=== PATIENT | female | born 1985 | race African-American/Black ===

== ENCOUNTER 2022-01-04 16:59 | Emergency (ER) | payer OTHER, SELFPAY ==
[2022-01-04 17:15] VITALS: BP 115/73; PULSE 65; RESP 18; TEMP 36.3; O2SAT 100; BMI 27.8
--- NOTE | 2022-01-04 20:35 | CRLHL7_ITS ---
For Patients: As a result of the Cures Act, medical imaging exams and procedure reports are released immediately into your electronic medical record. You may view this report before your referring provider. If you have questions, please contact your health care provider. INDICATION: Trauma. TECHNIQUE: Three views of the right foot. COMPARISON: None. IMPRESSION: No acute fracture is identified. No subluxation or dislocation. 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 Dictated by Marco Norris MD @ 01/04/2022 9:02:55 PM (Electronically Signed)
--- NOTE | 2022-01-04 20:35 | ED.GENADULT ---
HPI - General Adult General Time Seen by Provider: 20:36 Date Seen: 01/04/22 Chief complaint: Extremity Pain/Injury, Lower Stated complaint: Injured right leg at work Time Seen by Provider: 01/04/22 20:13 Source: patient Mode of arrival: ambulatory Limitations: no limitations History of Present Illness HPI narrative: Po is a 36 year old female with no past medical history who presents to the ED via private care with a right lower extremity injury. 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 This seed is made out a metal, ended up falling off landing right on her right foot, no other area. This occurred about 1:10 p.m., she iced it throughout the day at work, she took some Tylenol around 7 pm tonight. She has been limping on that right extremity, pain started radiating up her chung to her knee, no real associated swelling, patient has been ambulating but limping on that foot. No history of any injuries to that foot in the past, she denies any weakness, numbness or paresthesia. No other concerns at this time. Related Data Home Medications Medication Instructions Recorded Confirmed No Known Home Medications 01/04/22 01/04/22 Allergies Allergy/AdvReac Type Severity Reaction Status Date / Time oxycodone Allergy Verified 01/04/22 17:17 Review of Systems Status of ROS: Reports: 10 or more systems reviewed and unremarkable except as noted in History and below PFSH PFS Social History Smoking Status: Never smoker Do you use any of these nicotine containing products: None Second hand tobacco smoke exposure: No How often do you have a drink containing alcohol: never AUDIT-C Alcohol total score: 0 Non-prescribed substance use: denies use Exam Const: Vital Signs, click to edit/add: Vital Signs - 24 hr 01/04/22 17:15 Temperature 97.4 F L Pulse Rate [Right Pulse Oximeter] 65 Respiratory Rate 18 Blood Pressure [Ri ght Upper Arm] 115/73 Pulse Oximetry 100 Oxygen Delivery Me thod Room Air Common normals: no apparent distress and oriented x3 General appearance: cooperative, comfortable, well kempt and well developed Orientation/consciousness: Yes awake, Yes oriented to person, Yes oriented to place and Yes oriented to time HENMT: Common normals: normocephalic Head and scalp: normocephalic Mouth: oral and palatal mucosa normal Throat: posterior oropharynx normal Eye: Common normals: PERRL, EOMs intact bilaterally and conjunctivae normal Conjunctiva: conjunctiva(e) normal Pupil: PERRL Neck & C-Spine: Common normals: full ROM and supple Chest: Common normals: inspection of chest normal Resp: Common normals: clear to auscultation bilaterally Auscultation: clear to auscultation bilaterally Cardio: Common normals: regular rhythm, S1 normal heart sound and S2 normal heart sound Rhythm: regular rhythm Heart sounds: S1 normal and S2 normal GI: Common normals: non-tender Back & Pelvis: Common normals: no thoracic nor lumbar tenderness Extremity: Other: Right foot: Tender to palpation the proximal 2nd, 3rd and 4th metatarsal, no associated swelling, nontender to palpation the phalanges, patient can actively dorsal and plantar flex, no tenderness to the medial and lateral malleolus, nontender to palpation the proximal tibia and fibula, FROM the right knee. Neuro: Common normals: oriented x3 Sensorium/orientation: awake, oriented to person, oriented to place and oriented to time Psych: Appearance: well kempt Course Course Hospital Course: 8:20 PM: AIDET performed. Vitals are normal. Workup will include, XR right foot three views to rule out fracture, likely place any surgical shoe, for pain Motrin 800 mg orally. Patient was in agreement. Reevaluation(s) Reevaluation #1: Patient was updated on her imaging results, no acute fracture identified, no subluxation or dislocation. Patient is feeling better after above care given, plan to place any surgical shoe, she should follow up with her primary care provider over the next 7-10 days, continue with RICE, Motrin or Tylenol every 4-6 hours as needed for pain. Return if worsening symptoms. Time: 21:06 Vital Signs Vital signs: Initial Vital Signs Temperature 97.4 F L 01/04/22 17:15 Temperature Source Temporal Artery Scan 01/04/22 17:15 Pulse Rate 65 01/04/22 17:15 Respiratory Rate 18 01/04/22 17:15 Blood Pressure 115/73 01/04/22 17:15 Blood Pressure Mean 87 01/04/22 17:15 Blood Pressure Position Sitting 01/04/22 17:15 Pulse Oximetry 100 01/04/22 17:15 Oxygen Delivery Method 01/04/22 17:15 Vital Signs Temperature 97.4 F L 01/04/22 17:15 Pulse Rate 65 01/04/22 17:15 Respiratory Rate 18 01/04/22 17:15 Blood Pressure 115/73 01/04/22 17:15 Pulse Oximetry 100 01/04/22 17:15 Oxygen Delivery Method 01/04/22 17:15 Temperature 97.4 F L 01/04/22 17:15 Pulse Rate 72 01/04/22 21:20 Respiratory Rate 16 01/04/22 21:20 Blood Pressure 115/73 01/04/22 17:15 Pulse Oximetry 99 01/04/22 21:20 Oxygen Delivery Method 01/04/22 21:20 Discharge Plan Discharge Clinical Impression: Injury of foot, right Patient Disposition: Home, Self-Care Condition: Improved Instructions: R.I.C.E. Treatment (ED) Additional Instructions: To follow up with your primary care provider in the next 7-10 days for recheck. Motrin 400-600 mg every 4-6 hours or Tylenol 1000 mg every 4-6 hours for pain. Return if worsening symtoms. Activity Level: Activity as Tolerated Prescriptions: No Action No Known Home Medications Follow Up/Referrals: El Conklin MD [Staff Physician] - Stand Alone Forms: [employer] Info Instructions
[2022-01-04] MEDS: IBUPROFEN 400 MG TABLET 800 MG PO (20:45)
--- OUTSIDE RECORDS SUMMARY | 2022-01-04 21:14 | XMS_ITS | Clinical Summary ---
:1985 Author Organization [facility] [place] [address] Care Team Providers Name Role Phone Pcp, No Primary Care Provider Unavailable Allergies Active Allergy Reactions Severity Noted Date Comments Oxycodone Hives, Shortness Of Breath 07/07/2021 Medications Medication Sig Dispensed Refills Start Date End Date Status omeprazole (PRILOSEC) Take 1 Capsule (40 0 Active 40 mg Delayed-Release mg) by mouth once capsule daily before a meal. Active Problems Not on file Immunizations Name Administration Dates Next Due COVID-19 vaccine (Cyanto 30mcg/0.3mL) 12YO+ 022, 07/07/2021 DON-SUCROSE PFKEYSHA Social History Tobacco Use Types Packs/Day Years Used Date Never Smoker Smokeless Tobacco: Never Used Alcohol Use Standard Drinks/Week Comments Yes 0 (1 standard drink = 0.6 oz pure alcoho l) rare use Alcohol Habits Answer Date Recorded How often do you have a drink containing alcohol? Not asked How many drinks containing alcohol do you have on a typical Not asked day when you are drinking? How often do you have six or more drinks on one occasion? No t asked Comment: rare use 07/07/2021 Sex Assigned at Date Recorded Not on file Obstetrics History Last Filed Vital Signs Vital Sign Reading Time Taken Comments Blood Pressure 95/57 07/07/2021 9:43 AM CDT Pulse 72 07/07/2021 9:43 AM CDT Temperature 37 ??C (98.6 ??F) 06/13/2010 10:50 PM CDT Respiratory Rate 18 06/14/2010 1:27 AM CDT Oxygen Saturation 100% 07/07/2021 9:43 AM CDT Inhaled Oxygen Concentration - - Weight 86 kg (189 lb 9.6 oz) 07/07/2021 9:43 AM CDT Height 177.8 cm (5' 10) 07/07/2021 9:43 AM CDT Body Mass Index 27.2 07/07/2021 9:43 AM CDT Plan of Treatment Health Maintenance Due Date Last Done Comments Tdap 12/02/1998 Depression screening for age 12+ 1999 Hepatitis C screening for age 18-79 12/02/2005 Tetanus booster 2007 Pap test for age 21-65 12/02/2008 COVID-19 vaccine series (3 - Booster for 10/01/2021 022, 07/07/2021 Pfizer series) Influenza for age 9-49 12/02/2021 BMI (ht and wt on same day) for age 18+ 07/07/2022 07/08/19 22 Results Not on filefrom Last 3 Months Care Teams Automotive Lot Attendant Relationship Specialty Start Date End Date Pcp, No PCP - General 08/06/21 .
--- NOTE | 2022-01-04 21:19 | ED.NURSE ---
pt given work note.
[2022-01-04 21:20] VITALS: PULSE 72; RESP 16; O2SAT 99
== END 2022-01-04 21:23 | disposition home or self-care (01) ==
PROVIDERS: Emergency Provider Student in an Organized Health Care Education/Training Program
DX: S99.921A Unspecified injury of right foot, initial encounter (principal); W20.8XXA Other cause of strike by thrown, projected or falling object, initial encounter; Y93.89 Activity, other specified; Y92.89 Other specified places as the place of occurrence of the external cause; Y99.0 Civilian activity done for income or pay
CPT/HCPCS: 73630; 99283; 99284; A9270

== ENCOUNTER 2023-05-31 20:10 | Emergency (ER) | payer OTHER, SELFPAY ==
[2023-05-31 20:17] VITALS: BP 112/96; PULSE 111; RESP 20; TEMP 36.6; O2SAT 97; BMI 27.3
[2023-05-31 21:06] LABS: PCR FLU A Negative PCR FLU A (Negative); PCR FLU B Negative PCR FLU B (Negative); PCR RSV Negative PCR RSV (Negative); SARS PCR* Negative SARS-CoV-2 (Negative)
[2023-05-31 21:10] VITALS: O2SAT 98
[2023-05-31] MEDS: 0.9 % SODIUM CHLORIDE 1000 ml 1,000 ML IV ×2 (21:10→22:51)
[2023-05-31] MEDS: ONDANSETRON 2 MG/ML inj 4 MG IVP (21:12)
[2023-05-31 21:18] VITALS: TEMP 36.6
[2023-05-31] MEDS: KETOROLAC 30 MG/ML inj 15 MG IVP (21:18)
[2023-05-31 21:19] LABS: Basophils Absolute Auto 0.04 K/uL (0.00-0.30); Basophils Percent Auto 0.8 % (0.0-3.0); Eosinophils Absolute Auto 0.03 K/uL (0.00-0.50); Eosinophils Percent Auto 0.6 % (0.0-7.0); Hematocrit 40.8 % (33.0-51.0); Hemoglobin* 13.8 gm/dL (12.0-16.0); Immature Granulocytes Abs Auto 0.01 K/uL (0.00-0.30); Immature Granulocytes Pct Auto 0.2 %; Lymphocytes Absolute Auto 1.61 K/uL (0.90-2.90); Lymphocytes Percent Auto 33.8 % (20-44); Mean Corpuscular HGB Conc 34 gm/dL (32-36); Mean Corpuscular Hemoglobin 26 pg (26-34); Mean Corpuscular Volume 78 fL (80-100); Monocytes Percent Auto 8.4 % (0.0-11.0); Neutrophils Absolute Auto 2.67 K/uL (1.7-7.0); Neutrophils Percent Auto 56.2 % (42.0-72.0); Platelet Count* 116 K/uL (140-440); Red Blood Count 5.23 m/uL (4.00-5.20); White Blood Count* 4.76 K/uL (4.50-11.00)
[2023-05-31 21:20] LABS: Slide Review Reflex No
--- NOTE | 2023-05-31 21:28 | ED_ITS ---
HPI - Nausea/Vomiting/Diarrhea General Chief complaint: Nausea/Vomiting Stated complaint: vomiting, chest pain, cough Time Seen by Provider: 05/31/23 20:21 History of Present Illness HPI Narrative: This 37-year-old female comes in reporting persistent vomiting over the past 7- 10 days. She does not have any diarrhea. She states that she did have fever previously. She does feel lightheaded when upright. She also has had a cough. Her pain is located more in the upper epigastric region. Related Data Home Medications Medication Instructions Recorded Confirmed No Known Home Medications 01/04/22 01/04/22 Allergies Allergy/AdvReac Type Severity Reaction Status Date / Time oxycodone Allergy Verified 01/04/22 17:17 Review of Systems Status of ROS: Reports: 10 or more systems reviewed and unremarkable except as noted in History and below Narrative: Constitutional: No fevers, no weight gain or loss. Eyes: No discharge. No vision changes. HENT: No congestion, no sore throat, no ear pain. Cardiovascular: No palpitations. Respiratory: No shortness of breath, no wheezes, no cough. Gastrointestinal: No diarrhea. Upper epigastric and right upper quadrant abdominal pain. Recurrent vomiting. Genitourinary: No dysuria, no hematuria. Musculoskeletal: Normal range of motion. Skin: No rashes, no pruritis. Neurological: No dizziness, weakness, sensory change, speech change. Endo/Heme/Allergies: No bruising or bleeding. No polydipsia. Pysch: no suicidality, no anxiety, no insomnia. All other systems reviewed and are negative. [facility] Social History Smoking Status: Never smoker Do you use any of these nicotine containing products: None Second hand tobacco smoke exposure: No How often do you have a drink containing alcohol: monthly or less How many standard drinks containing alcohol do you have on a typical day: 1 or 2 How often do you have six or more drinks on one occasion: Never AUDIT-C Alcohol total score: 1 Non-prescribed substance use: denies use Exam Narrative: Exam Narrative: Constitutional: Well-developed, well-nourished, no acute distress. HEENT: Normocephalic, atraumatic. Neck: Normal range of motion. Nontender. Supple. Heart: Regular. No murmurs. Borderline tachycardia. Intact distal pulses. Lungs: Clear to auscultation. No wheezes, rhonchi, or rales. Abdomen: Normal bowel sounds. Tenderness in the upper epigastric region and the right upper quadrant. No rebound tenderness. Genitalia: Deferred. Back: No midline tenderness. Normal range of motion. Extremities: Normal range of motion. No injury. Skin: Intact. No rash. Warm. No erythema or pallor. Neurologic: No altered sensation. No weakness. Alert and oriented. Psychiatric: No suicidality. No anxiety or depression. No insomnia. Nursing notes and vitals signs are reviewed. Const: Vital Signs, click to edit/add: Vital Signs - 24 hr 05/31/23 20:17 05/31/23 21:10 05/31/23 21:18 Temperature 97.9 F 97.9 F Pulse Rate [Pulse Oximeter] 111 H Respiratory Rate 20 Blood Pressure [Ri ght Upper Arm] 112/96 H Pulse Oximetry 97 98 Oxygen Delivery Me thod Room Air 05/31/23 22:10 05/31/23 22:30 Temperature 97.9 F 97.9 F Pulse Rate [Pulse Oximeter] 100 Respiratory Rate 20 Blood Pressure [Ri ght Upper Arm] 110/78 Pulse Oximetry 98 Oxygen Delivery Me thod Room Air Course Vital Signs Vital signs: Initial Vital Signs Temperature 97.9 F 05/31/23 20:17 Temperature Source Temporal Artery Scan 05/31/23 20:17 Pulse Rate 111 H 05/31/23 20:17 Respiratory Rate 20 05/31/23 20:17 Blood Pressure 112/96 H 05/31/23 20:17 Blood Pressure Mean 101 05/31/23 20:17 Blood Pressure Position Sitting 05/31/23 20:17 Pulse Oximetry 97 05/31/23 20:17 Oxygen Delivery Method Room Air 05/31/23 20:17 Vital Signs Temperature 97.9 F 05/31/23 20:17 Pulse Rate 111 H 05/31/23 20:17 Respiratory Rate 20 05/31/23 20:17 Blood Pressure 112/96 H 05/31/23 20:17 Pulse Oximetry 97 05/31/23 20:17 Oxygen Delivery Method Room Air 05/31/23 20:17 Temperature 97.9 F 05/31/23 22:30 Pulse Rate 100 05/31/23 22:10 Respiratory Rate 20 05/31/23 22:10 Blood Pressure 110/78 05/31/23 22:10 Pulse Oximetry 98 05/31/23 22:10 Oxygen Delivery Method Room Air 05/31/23 22:10 Medications Administered Medications: Generic Name Dose Route Start Last Admin Trade Name Boy PRN Reason Stop Dose Admin Sodium Chloride 1,000 mls @ 1,000 mls/hr 05/31/23 22:45 05/31/23 23:33 0.9 % Sodium Chloride 1000 Ml IV 05/31/23 23:44 Infused .Q1H DAVID Infusion Discontinued Medications Generic Name Dose Route Start Last Admin Trade Name Boy PRN Reason Stop Dose Admin Hydromorphone HCl 0.3 mg 05/31/23 23:00 05/31/23 23:03 Hydromorphone 0.5 Mg/0.5 Ml Inj IVP 05/31/23 23:01 0.3 mg ONCE ONE Administration Sodium Chloride 1,000 mls @ 1,000 mls/hr 05/31/23 21:15 05/31/23 21:43 0.9 % Sodium Chloride 1000 Ml IV 05/31/23 22:14 Infused .Q1H DAVID Infusion Ketorolac Tromethamine 15 mg 05/31/23 21:15 05/31/23 21:18 Ketorolac 30 Mg/Ml Inj IVP 05/31/23 21:16 15 mg ONCE ONE Administration Ondansetron HCl 4 mg 05/31/23 21:06 05/31/23 21:12 Ondansetron 2 Mg/Ml Inj IVP 05/31/23 21:07 4 mg ONCE ONE Administration Potassium Bicarbonate 25 meq 05/31/23 21:36 05/31/23 21:43 Potassium Bicarb 25 Meq Effervescent Tab PO 05/31/23 21:37 25 meq ONCE ONE Administration Potassium Bicarbonate 25 meq 05/31/23 22:44 05/31/23 22:51 Potassium Bicarb 25 Meq Effervescent Tab PO 05/31/23 22:45 25 meq ONCE ONE Administration MDM - Nausea/Vomiting/Diarrhea MDM Narrative Medical decision making narrative: This 37-year-old female comes in reporting generalized malaise and lots of vomiting over the past week to 10 days. She reports some lightheadedness when upright. She also has diffuse abdominal pain and some back pain. I did use bedside ultrasound to evaluate her upper abdomen and saw normal anatomy including normal appearing gallbladder. An IV was established where she received a L of normal saline intravenously. She also received doses of Zofran, Toradol, and Dilaudid. This brought some improvement significantly to her symptoms. Lab results returned with normal appearing white count and hemoglobin. Her electrolytes are off most likely due to lots of vomiting. Her sodium is a bit low at 130 and potassium significant low at 2.3. Chloride was 76, carbon dioxide 37, an anion gap of 17. Her BUN and creatinine are normal. Her total bilirubin is a bit elevated at 2.0 with AST at 249 an ALT at 128. The patient states that she has been taking more Tylenol than she should have in efforts to try to feel better. Nasal pharyngeal swab is negative for COVID, influenza, and RSV. This patient is feeling better and repeat vital signs are reassuring. She appears to be okay to return home. She did received prescription for Zofran and Toradol. I did describe signs and symptoms that would indicate a need for return and re-evaluation. Lab Data Labs: Lab Results 05/31/23 05/31/23 Range/Units 20:15 21:13 WBC 4.76 (4.50-11.00) K/uL RBC 5.23 H (4.00-5.20) m/uL Hgb 13.8 (12.0-16.0) gm/dL Hct 40.8 (33.0-51.0) % MCV 78 L (80-100) fL MCH 26 (26-34) pg MCHC 34 (32-36) gm/dL RDW Coeff of Rex 14.0 (11.5-15.5) % Plt Count 116 L (140-440) K/uL Neut % (Auto) 56.2 (42.0-72.0) % Lymph % (Auto) 33.8 (20-44) % [place]ford % (Auto) 8.4 (0.0-11.0) % Eos % (Auto) 0.6 (0.0-7.0) % Baso % (Auto) 0.8 (0.0-3.0) % Neut # (Auto) 2.67 (1.7-7.0) K/uL Lymph # (Auto) 1.61 (0.90-2.90) K/uL [place]ford # (Auto) 0.40 (0.00-0.90) K/UL Eos # (Auto) 0.03 (0.00-0.50) K/uL Baso # (Auto) 0.04 (0.00-0.30) K/uL Abs Immat Gran (auto) 0.01 (0.00-0.30) K/uL Imm/Tot Granulo (auto) 0.2 % Sodium 130 L (135-149) mmol/L Potassium 2.3 L* (3.6-5.1) mmol/L Chloride 76 L (96-114) mmol/L Carbon Dioxide 37 H (20-32) mmol/L Anion Gap 17 H (7-15) mEq/L BUN 21 (5-24) mg/dL Creatinine 0.7 (0.5-1.5) mg/dL Estimated Creat Clear 121.30 Estimated GFR 116 ml/min Glucose 156 H (60-115) mg/dL Calcium 10.5 (8.4-10.6) mg/dL Total Bilirubin 2.0 H (0.1-1.5) mg/dL Direct Bilirubin 0.3 (0.0-0.5) mg/dL AST 249 H (12-35) U/L ALT 128 H (4-35) U/L Alkaline Phosphatase 123 (40-150) U/L Total Protein 9.6 H (6.0-8.3) g/dL Albumin 5.1 H (3.3-5.0) g/dL Lipase 101 (23-300) U/L SARS-CoV-2 (PCR) Negative SARS-CoV-2 (Negative) Influenza Type A (PCR) Negative PCR FLU A (Negative) Influenza Type B (PCR) Negative PCR FLU B (Negative) RSV (PCR) Negative PCR RSV (Negative) Discharge Plan Discharge Clinical Impression: Gastroenteritis, Acute hypokalemia Patient Disposition: Home, Self-Care Condition: Improved Additional Instructions: Take frequent sips of fluids and increase diet as tolerated. Use medications as needed and directed. Follow up with MD or return if symptoms are persistent or worsening. Prescriptions: No Action No Known Home Medications Follow Up/Referrals: Provider,Not a Local [Primary Care Provider] - Stand Alone Forms: [employer] Info Instructions
[2023-05-31 21:31] LABS: Albumin* 5.1 g/dL (3.3-5.0)
[2023-05-31 21:32] LABS: Chloride* 76 mmol/L (96-114); Sodium* 130 mmol/L (135-149)
[2023-05-31 21:34] LABS: Anion Gap 17 mEq/L (7-15); Aspartate Amino Transferase* 249 U/L (12-35); Bilirubin Direct* 0.3 mg/dL (0.0-0.5); Blood Urea Nitrogen* 21 mg/dL (5-24); Carbon Dioxide* 37 mmol/L (20-32); Creatinine* 0.7 mg/dL (0.5-1.5); Estimated Glomerular Filt Rate 116 ml/min; Total Protein* 9.6 g/dL (6.0-8.3)
[2023-05-31 21:35] LABS: Alanine Aminotransferase* 128 U/L (4-35); Alkaline Phosphatase* 123 U/L (40-150); Calcium* 10.5 mg/dL (8.4-10.6); Glucose* 156 mg/dL (60-115); Lipase* 101 U/L (23-300)
[2023-05-31 21:36] LABS: Potassium* 2.3 mmol/L (3.6-5.1)
[2023-05-31] MEDS: POTASSIUM BICARB 25 MEQ EFFERVESCENT TAB PO ×2 (21:43→22:51)
[2023-05-31 22:10] VITALS: BP 110/78; PULSE 100; RESP 20; TEMP 36.6; O2SAT 98
[2023-05-31 22:30] VITALS: TEMP 36.6
[2023-05-31] MEDS: HYDROmorphone 0.5 mg/0.5 ml inj 0.3 MG IVP (23:03)
[2023-05-31 23:46] VITALS: BP 114/74; PULSE 98; RESP 20; TEMP 36.6; O2SAT 98
[2023-06-01 00:05] VITALS: BP 114/74; PULSE 98; RESP 20; TEMP 36.6
== END 2023-06-01 00:05 | disposition home or self-care (01) ==
PROVIDERS: Emergency Provider Emergency Medicine Emergency Medical Services
DX: K52.9 Noninfective gastroenteritis and colitis, unspecified (principal); E87.6 Hypokalemia
CPT/HCPCS: 36415; 76705; 80048; 80076; 83690; 85025; 87631; 94761; 96374; 96375; 99284; A9270; J1170; J1885; J2405; J7030

== ENCOUNTER 2023-07-30 21:30 | Outpatient (CLI) | payer MEDICAID, SELFPAY ==
--- OUTSIDE RECORDS SUMMARY | 2023-08-03 09:52 | XMS_ITS | Clinical Summary ---
Author Name Unknown Organization [facility] Address [place], [place] [address] Care Team Providers Care Director Of Dance Name Role Phone Pcp, No Primary Care Provider Unavailabl e Allergies Active Allergy Reactions Criticality Noted Date Comments Oxycodone Hives,Shortness Of Breath 07/07/2021 Medications Medication Sig Dispensed Refills Start Date End Date Status omeprazole (PRILOSEC) 40 mg Delayed-Release capsule Take 1 Capsule (40 mg) by mouth once daily before a meal. 0 07/07/2021 Active Immunizations Name Administration Dates Next Due COVID-19 vaccine (Mopapp NTClearCare 30mcg/0.3mL) 12YO+ DON-SUCROSE PF, V 08/06/2021,07/07/2021 Social [...] age to complete this topic Care Teams Director Of Dance Relationship Specialty Start Date End Date Pcp, No . PCP - General 08/06/21
== END 2023-07-30 21:31 | disposition home or self-care (01) ==
LOC: AMB 08-03 09:51
PROVIDERS: Visit Provider Student in an Organized Health Care Education/Training Program
DX: R41.82 Altered mental status, unspecified (principal); F10.129 Alcohol abuse with intoxication, unspecified
CPT/HCPCS: A0425; A0427

== ENCOUNTER 2023-07-30 22:04 | Emergency (ER) | payer MEDICAID, SELFPAY ==
[2023-07-30] VITALS (11 sets, daily range): BP systolic 118–144; BP diastolic 79–108; PULSE 105–122; RESP 18; TEMP 36.7; O2SAT 94–99; BMI 25.8
[2023-07-30] MEDS: 0.9 % SODIUM CHLORIDE 1000 ml 1,000 ML IV (22:18)
--- OUTSIDE RECORDS SUMMARY | 2023-07-30 22:23 | XMS_ITS | Clinical Summary ---
Author Name Unknown Organization [facility] Address [place], [place] [address] Care Team Providers Care Bleach Supervisor Name Role Phone Pcp, No Primary Care Provider Unavailabl e Allergies Active Allergy Reactions Criticality Noted Date Comments Oxycodone Hives,Shortness Of Breath 07/07/2021 Medications Medication Sig Dispensed Refills Start Date End Date Status omeprazole (PRILOSEC) 40 mg Delayed-Release capsule Take 1 Capsule (40 mg) by mouth once daily before a meal. 0 07/07/2021 Active Immunizations Name Administration Dates Next Due COVID-19 vaccine (Sendoid [employer] 30mcg/0.3mL) 12YO+ DON-SUCROSE PF, V 08/06/2021,07/07/2021 Social History Tobacco Use Types Packs/Day Years Used Date Smoking Tobacco: Never Smokeless Tobacco: Never Alcohol Use Standard Drinks/Week Comments Yes 0 (1 standard drink = 0.6 oz pur e alcohol) rare use Social Connections Answer Date Recorded Frequency of Communication with Friends and Fami ly Not on file 07/07/2021 Sex and Gender Information Value Date Recorded Sex Assigned at Not on file Gender Identity Not on file Sexual Orientation Not on file Obstetrics History Last Filed [...] 12/02/1998 Depression screening for age 12+ 1999 HIV for age 15-65 12/02/2002 Hepatitis C screening for ag e 18-79 12/02/2005 Tetanus booster 2007 Pap test for age 21-65 12/02/2008 BMI (ht and wt on same day) for age 18+ 07/07/2022 07/07/2021 COVID-19 vaccine series (2022- season) 2022 08/06/2021, 07/07/2021 Influenza for age 9-49 2023 Pneumococcal series for age 6-64 Aged Out No longer eligible b ased on patient's age to complete this topic Care Teams Bleach Supervisor Relationship Specialty Start Date End Date Pcp, No . PCP - General 08/06/21
--- NOTE | 2023-07-30 22:31 | ED.ALCOHOL ---
HPI - Alcohol General Date Seen: 07/30/23 <Christiano Medrano Mike - Last Filed: 07/31/23 00:27> Chief Complaint: Alcohol/Intoxication <Christiano Mitchell Mike DO - Last Filed: 07/31/23 00:27> Stated Complaint: ETOH <Christiano Mckeon DO - Last Filed: 07/31/23 00:27> Time Seen by Provider: 07/30/23 22:10 <Christiano Mckeon - Last Filed: 07/31/23 00:27> Source: patient <Christiano Mckeon - Last Filed: 07/31/23 00:27> Mode of arrival: ambulatory <Christiano Mckeon - Last Filed: 07/31/23 00:27> Limitations: no limitations <Christiano Mckeon Last Filed: 07/31/23 00:27> History of Present Illness HPI narrative: Patient is a 37-year-old female presenting for alcohol intoxication. Her aunt last week and since then she has been drinking heavily she states. States she thought she only had 2 drinks today but EMS said her bladder call was 0.304. They were called because her daughter thought they saw her seizing. The daughter is 9 years old. No other witnesses at this time. EMS did not notice any seizing but did states she was tachycardic to the 150s when they arrived. They gave 500 mL of IV fluids her heart rate came down to the 120s. She was vomiting she states she has been vomiting for the past 4 days. Zofran was given by EMS and she has not had any vomiting since. Denies fevers, chills, headache, vision changes. States her entire body hurts. <Christiano Mckeon - Last Filed: 07/31/23 00:27> Related Data Home Medications: Previous Rx's Medication Instructions Recorded potassium chloride 10 mEq 10 meq PO DAILY #10 caps 05/31/23 capsule,extended release <Christiano Mckeon Last Filed: 07/31/23 00:27> Allergies/Adverse Reactions: Allergies Allergy/AdvReac Type Severity Reaction Status Date / Time oxycodone Allergy Verified 01/04/22 17:17 <Christiano Mckeon DO - Last Filed: 07/31/23 00:27> Review of Systems Status of ROS Reports: 10 or more systems reviewed and unremarkable except as noted in History and below <Christiano Mckeon DO - Last Filed: 07/31/23 00:27> [facility] Social History: Social History Smoking Status: Never smoker Do you use any of these nicotine containing products: None Second hand tobacco smoke exposure: No How often do you have a drink containing alcohol: monthly or less How many standard drinks containing alcohol do you have on a typical day: 1 or 2 How often do you have six or more drinks on one occasion: Never AUDIT-C Alcohol total score: 1 Non-prescribed substance use: denies use <Christiano Mckeon DO - Last Filed: 07/31/23 00:27> Exam Narrative: Exam Narrative: Const: Appears intoxicated, well-developed/well-nourished Eyes: PERRL, no conjunctival injection, and symmetrical lids HENT: Atraumatic external nose and ears. Moist mucous membranes. Neck: Symmetric, trachea midline, No thyromegaly. CVS: RRR, No murmurs or gallops. Peripheral pulses 2+ and equal in all extremities RESP: Unlabored respiratory effort. Clear to auscultation bilaterally. GI: Nontender/Nondistended, No rebound or guarding. MSK:Extremities w/o deformity, Normal Active ROM Skin: Warm, Dry. No rashes or lesions. Neuro: Normal Muscle tone, No focal neurological deficits. Psych: Awake, Alert, & Oriented x3. Appropriate mood and affect. <Christiano Mckeon DO - Last Filed: 07/31/23 00:27> Const: Vital Signs, click to edit/add: Vital Signs - 24 hr 07/30/23 22:13 07/30/23 22:13 07/30/23 22:14 Temperature 98.1 F Pulse Rate 109 H 107 H Pulse Rate [Pulse Oximeter] 122 H Respiratory Rate 18 Blood Pressure 144/108 H Blood Pressure [Ri ght Upper Arm] 144/108 H Pulse Oximetry 99 97 94 Oxygen Delivery Me thod Room Air 07/30/23 22:15 07/30/23 22:15 07/30/23 22:30 Temperature Pulse Rate 108 H 105 H Pulse Rate [Pulse Oximeter] Respiratory Rate Blood Pressure Blood Pressure [Ri ght Upper Arm] Pulse Oximetry 96 99 97 Oxygen Delivery Me thod 07/30/23 22:45 07/30/23 23:02 07/30/23 23:11 Temperature Pulse Rate 114 H 110 H Pulse Rate [Pulse Oximeter] Respiratory Rate Blood Pressure 118/82 Blood Pressure [Ri ght Upper Arm] Pulse Oximetry 99 98 Oxygen Delivery Me thod 07/30/23 23:15 07/30/23 23:30 07/30/23 23:32 Temperature Pulse Rate 108 H 114 H 110 H Pulse Rate [Pulse Oximeter] Respiratory Rate Blood Pressure 127/79 Blood Pressure [Ri ght Upper Arm] Pulse Oximetry 98 96 95 Oxygen Delivery Me thod 07/30/23 23:45 07/31/23 00:02 07/31/23 00:31 Temperature Pulse Rate 115 H 111 H 117 H Pulse Rate [Pulse Oximeter] Respiratory Rate Blood Pressure 129/90 H 104/80 Blood Pressure [Ri ght Upper Arm] Pulse Oximetry 97 97 97 Oxygen Delivery Me thod 07/31/23 01:02 07/31/23 02:20 Temperature 98.1 F Pulse Rate 114 H Pulse Rate [Pulse Oximeter] Respiratory Rate Blood Pressure 137/83 Blood Pressure [Ri ght Upper Arm] Pulse Oximetry 94 Oxygen Delivery Me thod <Christiano Mckeon, DO - Last Filed: 07/31/23 00:27> Vital Signs, click to edit/add: Vital Signs - 24 hr 07/30/23 22:13 07/30/23 22:13 07/30/23 22:14 Temperature 98.1 F Pulse Rate 109 H 107 H Pulse Rate [Pulse Oximeter] 122 H Respiratory Rate 18 Blood Pressure 144/108 H Blood Pressure [Ri ght Upper Arm] 144/108 H Pulse Oximetry 99 97 94 Oxygen Delivery Me thod Room Air 07/30/23 22:15 07/30/23 22:15 07/30/23 22:30 Temperature Pulse Rate 108 H 105 H Pulse Rate [Pulse Oximeter] Respiratory Rate Blood Pressure Blood Pressure [Ri ght Upper Arm] Pulse Oximetry 96 99 97 Oxygen Delivery Me thod 07/30/23 22:45 07/30/23 23:02 07/30/23 23:11 Temperature Pulse Rate 114 H 110 H Pulse Rate [Pulse Oximeter] Respiratory Rate Blood Pressure 118/82 Blood Pressure [Ri ght Upper Arm] Pulse Oximetry 99 98 Oxygen Delivery Me thod 07/30/23 23:15 07/30/23 23:30 07/30/23 23:32 Temperature Pulse Rate 108 H 114 H 110 H Pulse Rate [Pulse Oximeter] Respiratory Rate Blood Pressure 127/79 Blood Pressure [Ri ght Upper Arm] Pulse Oximetry 98 96 95 Oxygen Delivery Me thod 07/30/23 23:45 07/31/23 00:02 07/31/23 00:31 Temperature Pulse Rate 115 H 111 H 117 H Pulse Rate [Pulse Oximeter] Respiratory Rate Blood Pressure 129/90 H 104/80 Blood Pressure [Ri ght Upper Arm] Pulse Oximetry 97 97 97 Oxygen Delivery Me thod 07/31/23 01:02 07/31/23 02:20 Temperature 98.1 F Pulse Rate 114 H Pulse Rate [Pulse Oximeter] Respiratory Rate Blood Pressure 137/83 Blood Pressure [Ri ght Upper Arm] Pulse Oximetry 94 Oxygen Delivery Me thod <Katt Wilkes MD - Last Filed: 07/31/23 03:01> Course Course ED Course: I assumed care for patient upon start of my shift at midnight due to the fact that the patient did not have a ride home. At 1:30 a.m., her test did come back positive, nursing team informed her , she did not know that she was reports her last menstrual period was probably a couple months ago. I will add an hCG quant. She is not having any signs of heavy bleeding or complication. She is counseled again to avoid alcohol. She will need to follow-up with OB. If she is still here in the morning hours, we will obtain a dating ultrasound. The will be no additional changes to plan of care. <Katt Wilkes MD - Last Filed: 07/31/23 03:01> Vital Signs Vital signs: Initial Vital Signs Temperature 98.1 F 07/30/23 22:13 Temperature Source Temporal Artery Scan 07/30/23 22:13 Pulse Rate 109 H 07/30/23 22:13 Respiratory Rate 18 07/30/23 22:13 Blood Pressure 144/108 H 07/30/23 22:13 Blood Pressure Mean 120 H 07/30/23 22:13 Blood Pressure Position Sitting 07/30/23 22:13 Pulse Oximetry 99 07/30/23 22:13 Oxygen Delivery Method Room Air 07/30/23 22:13 Vital Signs Temperature 98.1 F 07/30/23 22:13 Pulse Rate 109 H 07/30/23 22:13 Respiratory Rate 18 07/30/23 22:13 Blood Pressure 144/108 H 07/30/23 22:13 Pulse Oximetry 99 07/30/23 22:13 Oxygen Delivery Method Room Air 07/30/23 22:13 Temperature 98.1 F 07/31/23 02:20 Pulse Rate 114 H 07/31/23 01:02 Respiratory Rate 18 07/30/23 22:13 Blood Pressure 137/83 07/31/23 01:02 Pulse Oximetry 94 07/31/23 01:02 Oxygen Delivery Method Room Air 07/30/23 22:13 <Christiano Mckeon DO - Last Filed: 07/31/23 00:27> Initial Vital Signs Temperature 98.1 F 07/30/23 22:13 Temperature Source Temporal Artery Scan 07/30/23 22:13 Pulse Rate 109 H 07/30/23 22:13 Respiratory Rate 18 07/30/23 22:13 Blood Pressure 144/108 H 07/30/23 22:13 Blood Pressure Mean 120 H 07/30/23 22:13 Blood Pressure Position Sitting 07/30/23 22:13 Pulse Oximetry 99 07/30/23 22:13 Oxygen Delivery Method Room Air 07/30/23 22:13 Vital Signs Temperature 98.1 F 07/30/23 22:13 Pulse Rate 109 H 07/30/23 22:13 Respiratory Rate 18 07/30/23 22:13 Blood Pressure 144/108 H 07/30/23 22:13 Pulse Oximetry 99 07/30/23 22:13 Oxygen Delivery Method Room Air 07/30/23 22:13 Temperature 98.1 F 07/31/23 02:20 Pulse Rate 114 H 07/31/23 01:02 Respiratory Rate 18 07/30/23 22:13 Blood Pressure 137/83 07/31/23 01:02 Pulse Oximetry 94 07/31/23 01:02 Oxygen Delivery Method Room Air 07/30/23 22:13 <Katt Wilkes MD - Last Filed: 07/31/23 03:01> Medications Administered Medications: Discontinued Medications Generic Name Dose Route Start Last Admin Trade Name Freq PRN Reason Stop Dose Admin Sodium Chloride 1,000 mls @ 1,000 mls/hr 07/30/23 22:15 07/30/23 23:17 0.9 % Sodium Chloride 1000 Ml IV 07/30/23 23:14 Infused .Q1H DAVID Infusion Ibuprofen 600 mg 07/30/23 23:14 07/30/23 23:17 Ibuprofen 200 Mg Tablet PO 07/30/23 23:15 600 mg ONCE ONE Administration Ondansetron HCl 4 mg 07/30/23 23:19 07/30/23 23:20 Ondansetron 2 Mg/Ml Inj IVP 07/30/23 23:20 4 mg ONCE ONE Administration Pantoprazole Sodium 40 mg 07/31/23 00:25 07/31/23 00:30 Pantoprazole Sodium 40 Mg Inj IVP 07/31/23 00:26 40 mg ONCE ONE Administration <Christiano Mckeon DO - Last Filed: 07/31/23 00:27> Discontinued Medications Generic Name Dose Route Start Last Admin Trade Name Freq PRN Reason Stop Dose Admin Sodium Chloride 1,000 mls @ 1,000 mls/hr 07/30/23 22:15 07/30/23 23:17 0.9 % Sodium Chloride 1000 Ml IV 07/30/23 23:14 Infused .Q1H DAVID Infusion Ibuprofen 600 mg 07/30/23 23:14 07/30/23 23:17 Ibuprofen 200 Mg Tablet PO 07/30/23 23:15 600 mg ONCE ONE Administration Ondansetron HCl 4 mg 07/30/23 23:19 07/30/23 23:20 Ondansetron 2 Mg/Ml Inj IVP 07/30/23 23:20 4 mg ONCE ONE Administration Pantoprazole Sodium 40 mg 07/31/23 00:25 07/31/23 00:30 Pantoprazole Sodium 40 Mg Inj IVP 07/31/23 00:26 40 mg ONCE ONE Administration <Katt Wilkes MD - Last Filed: 07/31/23 03:01> MDM - Alcohol MDM Narrative Medical decision making narrative: Patient is a 37-year-old female presenting for alcohol intoxication. She is currently tachycardic and appears drunk. EMS did say her heart rate improved with IV fluids and will give her another L. there was concerned she had a seizure according to her 9-year-old daughter but nothing has been witnessed by EMS or us. EMS was concerned she could be going into alcohol withdrawal. Will do a BMP, CBC, urinalysis, urine drug screen. ETOH was ordered. Also ordered test. Patient's BMP and CBC showed no concerning findings. Her ETOH level for us was 0.32 and final very unlikely she would be drawn from alcohol while having an alcohol level this high. She is complaining with full body pain and we did give her ibuprofen. Noted dose of Zofran was given. She has vomited a few times in the emergency department but every time it is because she was start drinking large amounts of water because she states she feels dehydrated. After she drinks all this water show then vomited a small amount. She has been drinking because she has been sad about her aunt dying but denies any suicidal or homicidal ideation. She is not appear to be a threat to herself or others. Her mother is currently watching the patient's daughter but patient does not have a ride to get home. She is currently too intoxicated for us to let her leave on her own. We are currently looking for a ride. She is currently tachycardic but this is likely a from the alcohol intoxication. Patient signed out pending potential safe discharge home <Christiano Mckeon DO - Last Filed: 07/31/23 00:27> Lab Data Attestation: I reviewed the patient's lab results. <Katt Wilkes MD - Last Filed: 07/31/23 03:01> Lab results narrative: A CT indicating early , outpatient OB follow-up <Katt Wilkes MD - Last Filed: 07/31/23 03:01> Labs: Lab Results 07/30/23 07/31/23 07/31/23 Range/Units 22:40 00:00 01:15 WBC 4.14 L (4.50-11.00) K/uL RBC 5.13 (4.00-5.20) m/uL Hgb 13.1 (12.0-16.0) gm/dL Hct 40.0 (33.0-51.0) % MCV 78 L (80-100) fL MCH 26 (26-34) pg MCHC 33 (32-36) gm/dL RDW Coeff of Rex 14.7 (11.5-15.5) % Plt Count 126 L (140-440) K/uL Neut % (Auto) 60.0 (42.0-72.0) % Lymph % (Auto) 34.3 (20-44) % [place] % (Auto) 4.3 (0.0-11.0) % Eos % (Auto) 0.0 (0.0-7.0) % Baso % (Auto) 0.7 (0.0-3.0) % Neut # (Auto) 2.50 (1.7-7.0) K/uL Lymph # (Auto) 1.40 (0.90-2.90) K/uL [place] # (Auto) 0.20 (0.00-0.90) K/UL Eos # (Auto) 0.00 (0.00-0.50) K/uL Baso # (Auto) 0.00 (0.00-0.30) K/uL Abs Immat Gran (auto) 0.00 (0.00-0.30) K/uL Imm/Tot Granulo (auto) 0.7 % Sodium 145 (135-149) mmol/L Potassium 3.2 L (3.6-5.1) mmol/L Chloride 103 (96-114) mmol/L Carbon Dioxide 26 (20-32) mmol/L Anion Gap 16 H (7-15) mEq/L BUN 22 (5-24) mg/dL Creatinine 0.5 (0.5-1.5) mg/dL Estimated Creat Clear 169.82 Estimated GFR 125 ml/min Glucose 144 H (60-115) mg/dL Calcium 7.8 L (8.4-10.6) mg/dL HCG, Quant 7585.50 mIU/mL Urine Color Yellow (Yellow) Urine Appearance Cloudy A (Clear) Urine pH 5.5 (5.0-8.5) Ur Specific [place] >= 1.030 (1.000-1.030) Urine Protein 3+ A (Negative) Urine Glucose (UA) Negative (Negative) Urine Ketones Negative (Negative) Urine Blood 3+ A (Negative) Urine Nitrite Negative (Negative) Urine Bilirubin Negative (Negative) Urine Urobilinogen 0.2 (0.2-1.0) Ur Leukocyte Esterase Negative (Negative) Urine RBC 2-5 A (0-2) Urine WBC 0-2 (0-5) Ur Squamous Epith Cells Few (None-Few) Amorphous Sediment Few A (None) Other Sediment 0 (None) Urine Bacteria Moderate A (None) Urine HCG, Qual POSITIVE H (Negative) Urine Opiates Screen Negative (Negative) Ur Oxycodone Screen Negative (Negative) Urine Methadone Screen Negative (Negative) Ur Barbiturates Screen Negative (Negative) U Tricyclic Antidepress Negative (Negative) Ur Phencyclidine Scrn Negative (Negative) Ur Amphetamines Screen Negative (Negative) U Methamphetamines Scrn Negative (Negative) U Benzodiazepines Scrn Negative (Negative) Urine Cocaine Screen Negative (Negative) U Marijuana (THC) Screen Negative (Negative) Ur Drug Screen Comment See Note Ethyl Alcohol 0.32 H* (0.01-0.03) % Lab Acknowledgement 07/31/23 Range/Units 01:30 WBC (4.50-11.00) K/uL RBC (4.00-5.20) m/uL Hgb (12.0-16.0) gm/dL Hct (33.0-51.0) % MCV (80-100) fL MCH (26-34) pg MCHC (32-36) gm/dL RDW Coeff of Rex (11.5-15.5) % Plt Count (140-440) K/uL Neut % (Auto) (42.0-72.0) % Lymph % (Auto) (20-44) % [place] % (Auto) (0.0-11.0) % Eos % (Auto) (0.0-7.0) % Baso % (Auto) (0.0-3.0) % Neut # (Auto) (1.7-7.0) K/uL Lymph # (Auto) (0.90-2.90) K/uL [place] # (Auto) (0.00-0.90) K/UL Eos # (Auto) (0.00-0.50) K/uL Baso # (Auto) (0.00-0.30) K/uL Abs Immat Gran (auto) (0.00-0.30) K/uL Imm/Tot Granulo (auto) % Sodium (135-149) mmol/L Potassium (3.6-5.1) mmol/L Chloride (96-114) mmol/L Carbon Dioxide (20-32) mmol/L Anion Gap (7-15) mEq/L BUN (5-24) mg/dL Creatinine (0.5-1.5) mg/dL Estimated Creat Clear Estimated GFR ml/min Glucose (60-115) mg/dL Calcium (8.4-10.6) mg/dL HCG, Quant mIU/mL Urine Color (Yellow) Urine Appearance (Clear) Urine pH (5.0-8.5) Ur Specific [place] (1.000-1.030) Urine Protein (Negative) Urine Glucose (UA) (Negative) Urine Ketones (Negative) Urine Blood (Negative) Urine Nitrite (Negative) Urine Bilirubin (Negative) Urine Urobilinogen (0.2-1.0) Ur Leukocyte Esterase (Negative) Urine RBC (0-2) Urine WBC (0-5) Ur Squamous Epith Cells (None-Few) Amorphous Sediment (None) Other Sediment (None) Urine Bacteria (None) Urine HCG, Qual (Negative) Urine Opiates Screen (Negative) Ur Oxycodone Screen (Negative) Urine Methadone Screen (Negative) Ur Barbiturates Screen (Negative) U Tricyclic Antidepress (Negative) Ur Phencyclidine Scrn (Negative) Ur Amphetamines Screen (Negative) U Methamphetamines Scrn (Negative) U Benzodiazepines Scrn (Negative) Urine Cocaine Screen (Negative) U Marijuana (THC) Screen (Negative) Ur Drug Screen Comment Ethyl Alcohol (0.01-0.03) % Lab Acknowledgement Test Added <Christiano Mckeon, - Last Filed: 07/31/23 00:27> Lab Results 07/30/23 07/31/23 07/31/23 Range/Units 22:40 00:00 01:15 WBC 4.14 L (4.50-11.00) K/uL RBC 5.13 (4.00-5.20) m/uL Hgb 13.1 (12.0-16.0) gm/dL Hct 40.0 (33.0-51.0) % MCV 78 L (80-100) fL MCH 26 (26-34) pg MCHC 33 (32-36) gm/dL RDW Coeff of Rex 14.7 (11.5-15.5) % Plt Count 126 L (140-440) K/uL Neut % (Auto) 60.0 (42.0-72.0) % Lymph % (Auto) 34.3 (20-44) % [place] % (Auto) 4.3 (0.0-11.0) % Eos % (Auto) 0.0 (0.0-7.0) % Baso % (Auto) 0.7 (0.0-3.0) % Neut # (Auto) 2.50 (1.7-7.0) K/uL Lymph # (Auto) 1.40 (0.90-2.90) K/uL [place] # (Auto) 0.20 (0.00-0.90) K/UL Eos # (Auto) 0.00 (0.00-0.50) K/uL Baso # (Auto) 0.00 (0.00-0.30) K/uL Abs Immat Gran (auto) 0.00 (0.00-0.30) K/uL Imm/Tot Granulo (auto) 0.7 % Sodium 145 (135-149) mmol/L Potassium 3.2 L (3.6-5.1) mmol/L Chloride 103 (96-114) mmol/L Carbon Dioxide 26 (20-32) mmol/L Anion Gap 16 H (7-15) mEq/L BUN 22 (5-24) mg/dL Creatinine 0.5 (0.5-1.5) mg/dL Estimated Creat Clear 169.82 Estimated GFR 125 ml/min Glucose 144 H (60-115) mg/dL Calcium 7.8 L (8.4-10.6) mg/dL HCG, Quant 7585.50 mIU/mL Urine Color Yellow (Yellow) Urine Appearance Cloudy A (Clear) Urine pH 5.5 (5.0-8.5) Ur Specific [place] >= 1.030 (1.000-1.030) Urine Protein 3+ A (Negative) Urine Glucose (UA) Negative (Negative) Urine Ketones Negative (Negative) Urine Blood 3+ A (Negative) Urine Nitrite Negative (Negative) Urine Bilirubin Negative (Negative) Urine Urobilinogen 0.2 (0.2-1.0) Ur Leukocyte Esterase Negative (Negative) Urine RBC 2-5 A (0-2) Urine WBC 0-2 (0-5) Ur Squamous Epith Cells Few (None-Few) Amorphous Sediment Few A (None) Other Sediment 0 (None) Urine Bacteria Moderate A (None) Urine HCG, Qual POSITIVE H (Negative) Urine Opiates Screen Negative (Negative) Ur Oxycodone Screen Negative (Negative) Urine Methadone Screen Negative (Negative) Ur Barbiturates Screen Negative (Negative) U Tricyclic Antidepress Negative (Negative) Ur Phencyclidine Scrn Negative (Negative) Ur Amphetamines Screen Negative (Negative) U Methamphetamines Scrn Negative (Negative) U Benzodiazepines Scrn Negative (Negative) Urine Cocaine Screen Negative (Negative) U Marijuana (THC) Screen Negative (Negative) Ur Drug Screen Comment See Note Ethyl Alcohol 0.32 H* (0.01-0.03) % Lab Acknowledgement 07/31/23 Range/Units 01:30 WBC (4.50-11.00) K/uL RBC (4.00-5.20) m/uL Hgb (12.0-16.0) gm/dL Hct (33.0-51.0) % MCV (80-100) fL MCH (26-34) pg MCHC (32-36) gm/dL RDW Coeff of Rex (11.5-15.5) % Plt Count (140-440) K/uL Neut % (Auto) (42.0-72.0) % Lymph % (Auto) (20-44) % [place] % (Auto) (0.0-11.0) % Eos % (Auto) (0.0-7.0) % Baso % (Auto) (0.0-3.0) % Neut # (Auto) (1.7-7.0) K/uL Lymph # (Auto) (0.90-2.90) K/uL [place] # (Auto) (0.00-0.90) K/UL Eos # (Auto) (0.00-0.50) K/uL Baso # (Auto) (0.00-0.30) K/uL Abs Immat Gran (auto) (0.00-0.30) K/uL Imm/Tot Granulo (auto) % Sodium (135-149) mmol/L Potassium (3.6-5.1) mmol/L Chloride (96-114) mmol/L Carbon Dioxide (20-32) mmol/L Anion Gap (7-15) mEq/L BUN (5-24) mg/dL Creatinine (0.5-1.5) mg/dL Estimated Creat Clear Estimated GFR ml/min Glucose (60-115) mg/dL Calcium (8.4-10.6) mg/dL HCG, Quant mIU/mL Urine Color (Yellow) Urine Appearance (Clear) Urine pH (5.0-8.5) Ur Specific [place] (1.000-1.030) Urine Protein (Negative) Urine Glucose (UA) (Negative) Urine Ketones (Negative) Urine Blood (Negative) Urine Nitrite (Negative) Urine Bilirubin (Negative) Urine Urobilinogen (0.2-1.0) Ur Leukocyte Esterase (Negative) Urine RBC (0-2) Urine WBC (0-5) Ur Squamous Epith Cells (None-Few) Amorphous Sediment (None) Other Sediment (None) Urine Bacteria (None) Urine HCG, Qual (Negative) Urine Opiates Screen (Negative) Ur Oxycodone Screen (Negative) Urine Methadone Screen (Negative) Ur Barbiturates Screen (Negative) U Tricyclic Antidepress (Negative) Ur Phencyclidine Scrn (Negative) Ur Amphetamines Screen (Negative) U Methamphetamines Scrn (Negative) U Benzodiazepines Scrn (Negative) Urine Cocaine Screen (Negative) U Marijuana (THC) Screen (Negative) Ur Drug Screen Comment Ethyl Alcohol (0.01-0.03) % Lab Acknowledgement Test Added <Katt Wilkes MD - Last Filed: 07/31/23 03:01> Discharge Plan Discharge Clinical Impression: Alcoholic intoxication, <Christiano Mckeon DO - Last Filed: 07/31/23 00:27> Patient Disposition: Home w/ Parent or Adult <Christiano Mckeon DO - Last Filed: 07/31/23 00:27> Condition: Improved <Christiano Mckeon DO - Last Filed: 07/31/23 00:27> Instructions: (ED), Abuse of Alcohol (DC) <Christiano Mckeon DO - Last Filed: 07/31/23 00:27> Additional Instructions: consider taking an over the counter antacid like omeprazole once daily to help your stomach ill. your alcohol level was 0.32, which is 4 times the legal limit Your test is positive. You need to make a follow-up appointment right away with an Ob provider. It is imperative that you quit drinking immediately. You should come back to the emergency department if you experience heavy bleeding, severe abdominal pain or other signs of complication. Your nausea and vomiting will be amplified if you do not stop drinking alcohol. <Christiano Mckeon DO - Last Filed: 07/31/23 00:27> Activity Level: No Restrictions <Christiano Mckeon DO - Last Filed: 07/31/23 00:27> No Restrictions <Katt Wilkes MD - Last Filed: 07/31/23 03:01> Discharge Diet: Regular <Christiano Mckeon DO - Last Filed: 07/31/23 00:27> Regular <Katt Wilkes MD - Last Filed: 07/31/23 03:01> Prescriptions: No Action potassium chloride 10 mEq capsule, extended release 10 meq PO DAILY Qty: 10 2RF <Christiano Mckeon DO - Last Filed: 07/31/23 00:27> Follow Up/Referrals: Provider,Not a Local [Primary Care Provider] - <Christiano Mckeon DO - Last Filed: 07/31/23 00:27> Stand Alone Forms: [facility] Info Instructions <Christiano Mckeon DO - Last Filed: 07/31/23 00:27>
[2023-07-30 22:57] LABS: Chloride* 103 mmol/L (96-114); Potassium* 3.2 mmol/L (3.6-5.1); Sodium* 145 mmol/L (135-149)
[2023-07-30 22:59] LABS: Creatinine* 0.5 mg/dL (0.5-1.5); Est. Creatinine Clearance* 169.82; Estimated Glomerular Filt Rate 125 ml/min
[2023-07-30 23:00] LABS: Anion Gap 16 mEq/L (7-15); Blood Urea Nitrogen* 22 mg/dL (5-24); Carbon Dioxide* 26 mmol/L (20-32); Glucose* 144 mg/dL (60-115)
[2023-07-30 23:01] LABS: Calcium* 7.8 mg/dL (8.4-10.6)
[2023-07-30 23:04] LABS: Basophils Percent Auto 0.7 % (0.0-3.0); Hemoglobin* 13.1 gm/dL (12.0-16.0); Immature Granulocytes Pct Auto 0.7 %; Lymphocytes Percent Auto 34.3 % (20-44); Mean Corpuscular HGB Conc 33 gm/dL (32-36); Mean Corpuscular Hemoglobin 26 pg (26-34); Mean Corpuscular Volume 78 fL (80-100); Monocytes Percent Auto 4.3 % (0.0-11.0); Platelet Count* 126 K/uL (140-440); RDW Coefficient of Variation % 14.7 % (11.5-15.5); Red Blood Count 5.13 m/uL (4.00-5.20); White Blood Count* 4.14 K/uL (4.50-11.00)
[2023-07-30 23:07] LABS: Slide Review Reflex No
[2023-07-30 23:08] LABS: Ethanol* 0.32 % (0.01-0.03)
[2023-07-30] MEDS: IBUPROFEN 200 MG TABLET 600 MG PO (23:17)
[2023-07-30] MEDS: ONDANSETRON 2 MG/ML inj 4 MG IVP (23:20)
[2023-07-31 00:02] VITALS: BP 129/90; PULSE 111; O2SAT 97
[2023-07-31] MEDS: PANTOPRAZOLE SODIUM 40 MG INJ IVP (00:30)
[2023-07-31 00:31] VITALS: BP 104/80; PULSE 117; O2SAT 97
[2023-07-31 01:02] VITALS: BP 137/83; PULSE 114; O2SAT 94
[2023-07-31 01:22] LABS: Appearance Urine Cloudy (Clear); Bilirubin Urine Negative (Negative); Blood Urine 3+ (Negative); Color Urine Yellow (Yellow); Glucose Urine Negative (Negative); Ketones Urine Negative (Negative); Leukocyte Esterase Urine Negative (Negative); Nitrite Urine Negative (Negative); Protein Urine 3+ (Negative); Specific Gravity Urine >= 1.030 (1.000-1.030); Urobilinogen Urine 0.2 (0.2-1.0); pH Urine 5.5 (5.0-8.5)
[2023-07-31 01:29] LABS: Amorphous Sediment Urine Few; Bacteria Urine Moderate; Other Sediment Urine 0; Squamous Epithelial Cell Urine Few (None-Few); Ur HCG Qualitative* POSITIVE (Negative); WBC Urine 0-2 (0-5)
[2023-07-31 01:31] LABS: Amphetamine Screen Urine Negative (Negative); Barbiturate Screen Urine Negative (Negative); Benzodiazepines Screen Urine Negative (Negative); Cannabinoid Screen Urine Negative (Negative); Cocaine Screen Urine Negative (Negative); Methadone Screen Urine Negative (Negative); Methamphetamines Screen Urine Negative (Negative); Opiate Screen Urine Negative (Negative); Oxycodone Screen Urine Negative (Negative); Phencyclidine Screen Urine Negative (Negative); Tricyclic Antidepressant Urine Negative (Negative)
[2023-07-31 02:20] VITALS: TEMP 36.7
== END 2023-07-31 02:30 | disposition home or self-care (01) ==
PROVIDERS: Family Medicine; Emergency Provider Student in an Organized Health Care Education/Training Program
DX: F10.129 Alcohol abuse with intoxication, unspecified (principal); Z32.01 Encounter for pregnancy test, result positive
CPT/HCPCS: 36415; 80048; 80306; 81001; 81025; 82077; 84702; 85025; 87086; 94761; 96374; 96375; 99283; 99284; A9270; C9113; J2405; J7030

== ENCOUNTER 2024-04-02 02:14 | Inpatient (IN) | payer BC, SELFPAY ==
[2024-04-02] VITALS (51 sets, daily range): BP systolic 97–199; BP diastolic 55–133; PULSE 65–150; RESP 16–20; TEMP 36.6–37; O2SAT 67–100; BMI 28.8
[2024-04-02 02:25] LABS: Basophils Absolute Auto 0.03 K/uL (0.00-0.30); Basophils Percent Auto 0.3 % (0.0-3.0); Eosinophils Absolute Auto 0.06 K/uL (0.00-0.50); Eosinophils Percent Auto 0.6 % (0.0-7.0); Hematocrit 36.1 % (33.0-51.0); Immature Granulocytes Abs Auto 0.01 K/uL (0.00-0.30); Immature Granulocytes Pct Auto 0.1 %; Lymphocytes Percent Auto 42.2 % (20-44); Mean Corpuscular HGB Conc 33 gm/dL (32-36); Mean Corpuscular Hemoglobin 26 pg (26-34); Mean Corpuscular Volume 79 fL (80-100); Monocytes Percent Auto 7.4 % (0.0-11.0); Neutrophils Absolute Auto 4.91 K/uL (1.7-7.0); Neutrophils Percent Auto 49.4 % (42.0-72.0); Platelet Count* 205 K/uL (140-440); RDW Coefficient of Variation % 14.4 % (11.5-15.5); Red Blood Count 4.58 m/uL (4.00-5.20); White Blood Count* 9.95 K/uL (4.50-11.00)
[2024-04-02 02:28] LABS: Slide Review Reflex No
--- NOTE | 2024-04-02 03:00 | PM.OBHPLI ---
OB - H&P: HPI Labor/Induction History of Present Illness Date Seen: 04/02/24 Chief Complaint: The patient is a 38 year old 5 para 1122 at 39+6 weeks gestation by 1st trimester US, who presents with SROM of clear fluid and painful regular contractions. Chief complaint: maternity Narrative: Po Alexander is a 38 year old at 39+6 weeks by 1st trimester us here today after SROM of clear fluid shortly after midnight. After ROM, she developed regular contractions every 3-5 minutes increasing in intensity since her arrival to L&D. is complicated by AMA and history of LTCS with first due to possible HSV outbreak. Second resulted in a full term . She underwent level 2 US with perinatology for AMA and this was reassuring and she has had consult/consent completed for TOLAC this . She has no signs/symptoms of HSV throughout this and has been on acyclovir prophylaxis since 36 weeks. Exam in clinic 04/01 revealed no concerning vulvar lesions. History of Present Dating criteria: based on 1st trimester US only care: good care Ultrasounds: normal mid trimester US Medical complications: none Labs Blood type: O (+) positive Rubella: immune RPR/VDLR: nonreactive GBS status: negative HBsAG: negative Review of Systems Status of ROS: Reports: 6 or more systems reviewed and unremarkable except as noted in History and below Meds Home Medications and Allergies Home Medications ?Medication ?Instructions ?Recorded ?Confirmed ?Type docosahexaenoic acid 200 mg mg PO 02/27/24 02/27/24 History capsule ( DHA) acyclovir 400 mg tablet 400 mg PO 3XD 04/02/24 04/02/24 History Allergies Allergy/AdvReac Type Severity Reaction Status Date / Time oxycodone Allergy Verified 02/27/24 14:19 OB - H&P: Exam Physical Exam: Vital signs: Pulse BP Pulse Ox 75 131/72 100 04/02/24 02:58 04/02/24 02:58 04/02/24 02:49 Constitutional: Constitutional: no acute distress Routine HEENT Exam: Eye: Present EOMI and normal appearance ENT: Present mucous membranes moist Routine Neck Exam: Neck: Present full ROM Routine Respiratory Exam: Respiratory: Present CTA bilaterally Routine Cardiovascular Exam: Cardiovascular: RRR Routine Abdominal Exam: Comments: gravid, appropriate for gestational age Routine Exam: Perineum Description: Normal Comments: no evidence of herpes outbreak Detailed Labor and Delivery Exam: Patient Gravid: Yes Dilation (cm): 5 Effacement (%): 75 Cervix position: anterior Consistency: soft Fetus (Single): Station: -1 Amniotic Membrane Status: SROM Amniotic Membrane Fluid Description: Clear Heart Rate Baseline: 135 Monitor Accelerations: Absent Monitor Decelerations: None Snf Variability: Moderate (6-25) Routine Extremities Exam: Extremities: Present normal inspection Routine Skin Exam: Present intact Routine Neurological Exam: Present alert and oriented X3 Routine Psychiatric Exam: Present normal affect and normal thought process OB - Results Labs Labs: Short CBC 04/02/24 Range/Units 02:15 WBC 9.95 (4.50-11.00) K/uL Hgb 12.0 (12.0-16.0) gm/dL Hct 36.1 (33.0-51.0) % Plt Count 205 (140-440) K/uL OB - Problem Based A/P Additional Plan (1) Term : Status: Acute (2) Active labor: Status: Acute (3) History of delivery: Status: Acute Plan Patient has requested an epidural for labor analgesia. She is having regular contractions and making cervical change, will continue expectant management. Due to TOLAC, surgical team has been called to be in house. Anticipate Delivery/Labor/Induction Plan Plan: expectant management
[2024-04-02] MEDS: LACTATED RINGERS 1000 ML 1,000 ML 125 ML IV (03:05)
[2024-04-02] MEDS: ROPIVACAINE 0.2% 100 ml 100 ML 12 MG EPIDURAL (03:22)
[2024-04-02] MEDS: LIDOCAINE 2% (PF) 5 ML VIAL EPIDURAL (03:22)
--- NOTE | 2024-04-02 03:37 | P.ANBPRC_ITS ---
[facility] Social History Smoking Status: Never smoker Do you use any of these nicotine containing products: None Second hand tobacco smoke exposure: No How often do you have a drink containing alcohol: monthly or less How many standard drinks containing alcohol do you have on a typical day: 1 or 2 How often do you have six or more drinks on one occasion: Never AUDIT-C Alcohol total score: 1 Non-prescribed substance use: denies use Meds Home Medications and Allergies Home Medications ?Medication ?Instructions ?Recorded ?Confirmed ?Type docosahexaenoic acid 200 mg 200 mg PO DAILY 02/27/24 04/02/24 History capsule ( DHA) acyclovir 400 mg tablet 400 mg PO 3XD 04/02/24 04/02/24 History Allergies Allergy/AdvReac Type Severity Reaction Status Date / Time oxycodone Allergy Verified 02/27/24 14:19 Results Labs Labs: Laboratory Results - last 24 hr 04/02/24 02:15 WBC 9.95 RBC 4.58 Hgb 12.0 Hct 36.1 MCV 79 L MCH 26 MCHC 33 RDW Coeff of Rex 14.4 Plt Count 205 Neut % (Auto) 49.4 Lymph % (Auto) 42.2 [place] % (Auto) 7.4 Eos % (Auto) 0.6 Baso % (Auto) 0.3 Neut # (Auto) 4.91 Lymph # (Auto) 4.20 H [place] # (Auto) 0.70 Eos # (Auto) 0.06 Baso # (Auto) 0.03 Abs Immat Gran (auto) 0.01 Imm/Tot Granulo (auto) 0.1 Blood Type O Positive Antibody Screen NEGATIVE Vital Signs Vital Signs: Last Vital Signs Pulse 78 04/02/24 03:34 BP 112/65 04/02/24 03:34 Pulse Ox 100 04/02/24 03:34 Weight: 92.533 kg Height: 179.07 cm Anesthesia Procedures Epidural Insertion Patient Location: OB Start Time: 02:45 Stop Time: 03:45 Start Date: 04/02/24 Stop Date: 04/02/24 Reason for Block: procedure for pain Patient Position: sitting Performed By: Lindsey Gonzales Preanesthetic Checklist: IV checked, risks and benefits discussed, monitors and equipment checked, pre-op evaluation, timeout performed and anesthesia consent Prep: chlorhexidine gluconate Monitoring: blood pressure monitoring, continuous pulse oximetry and heart rate Approach: midline Vertebral Space: lumbar (1-5) Epidural Technique: LAKISHA saline Needle Type: Tuohy needle Injection Technique: continuous catheter (continuous catheter) Needle gauge: 17 Needle Length (cm): 10 cm Needle Insertion Depth (cm): 6 Catheter Gauge: 19 Catheter Type: multi-orifice Catheter at skin depth (cm): 15 Test Dose Result: negative and lidocaine 1.5% with epinephrine 1 to 200,000
[2024-04-02] MEDS: OXYTOCIN 30 unit/500 ML in NS 30 UNIT/500 ML BAG 300 UNIT IVPB (04:42)
--- NOTE | 2024-04-02 05:10 | W.PM.VAGD1_ITS ---
Procedure Delivery date: 04/02/24 Procedure Done: Global Events: Previous and AMA Delivery monitor: external FHT and external uterine Route of delivery: Episiotomy description: None Laceration description: Perineal - 2nd Degree Delivery repair: Vicryl Estimated blood loss (mL): 125 Anesthesia type: Epidural Disposition: floor Narrative: The patient is a 38 year-old admitted on 04/02/2024 at 39 Weeks, 6 Days gestation for active labor, SROM.? Cervical exam on admission was 5 cm/75 % effaced/-1 station with membranes ruptured in vertex presentation.? Contractions were every 3-5 minutes.? heart rate demonstrated baseline 135 bpm with moderate variability, + accelerations, - decelerations; a category 1 tracing.? SROM occurred at 0030 with clear fluid. ? Labor Analgesia:? epidural ? Pitocin:? post delivery ? Labor onset:? 0030 ? Complete:? 0423 ? Pushing:? 0434 ? heart tones during second stage were category 2. ? At 0439 a viable male delivered in vertex OA presentation over intact perineum via spontaneous vaginal delivery.? was placed on maternal abdomen.? Cord was clamped and cut after a 30-60 second delay.? Nose and mouth were bulb suctioned.? Infant weight 3150g ([id number]).? 8 at 1 minute and 9 at 5 minutes.? Shoulder dystocia: no.? Nuchal cord: no. ? Placenta delivered spontaneously and complete at 0443 with a 3 vessel cord. ? Mother and were stable after delivery. ? Lacerations:? 2nd degree perineal, repaired with 3-0 vicryl suture. ? Blood loss: 125 mL. Blood loss measurement type: QBL ? Sponge and needles counts are correct. [place] Infant Gender: Male presentation: vertex Placental Delivery Description: Spontaneous Cord Description: 3 Vessels
[2024-04-02 08:09] LABS: Hematocrit 34.5 % (33.0-51.0); Hemoglobin* 11.4 gm/dL (12.0-16.0); Mean Corpuscular HGB Conc 33 gm/dL (32-36); Mean Corpuscular Hemoglobin 26 pg (26-34); Mean Corpuscular Volume 80 fL (80-100); Platelet Count* 194 K/uL (140-440); Red Blood Count 4.34 m/uL (4.00-5.20); White Blood Count* 12.07 K/uL (4.50-11.00)
[2024-04-02 08:15] LABS: Slide Review Reflex No
[2024-04-02] MEDS: IBUPROFEN 600 MG TABLET PO ×2 (08:18→16:00)
[2024-04-02] MEDS: DOCUSATE SODIUM 100 MG CAPSULE PO (08:20)
[2024-04-02 08:24] LABS: Alanine Aminotransferase* 11 U/L (4-35); Aspartate Amino Transferase* 18 U/L (12-35); Blood Urea Nitrogen* 5 mg/dL (5-24); Creatinine* 0.5 mg/dL (0.5-1.5); Est. Creatinine Clearance* 168.21; Estimated Glomerular Filt Rate 125 ml/min
--- NOTE | 2024-04-02 12:27 | PM.ANPOST ---
Post Anesthesia Note Post Anesthesia Note Patient seen: Inpatient Respiratory Status: adequate Cardiovascular Status: adequate Mental Status: baseline Pain: adequate Temp: baseline Anesthetic awareness: N/A Complications: none Follow care: none
[2024-04-03] MEDS: IBUPROFEN 600 MG TABLET PO ×2 (01:21→08:00)
[2024-04-03 01:22] VITALS: BP 100/64; PULSE 70; RESP 16; TEMP 36.8; O2SAT 100
[2024-04-03 07:24] LABS: Hemoglobin* 11.2 gm/dL (12.0-16.0)
[2024-04-03 07:55] VITALS: BP 98/64; PULSE 68; RESP 18; TEMP 36.9; O2SAT 99
[2024-04-03] MEDS: DOCUSATE SODIUM 100 MG CAPSULE PO (08:00)
--- NOTE | 2024-04-03 08:38 | PM.OBDSVD1 ---
DS: Providers Provider Date Seen: 04/03/24 Date of admission: 04/02/24 02:14 Primary care physician: Not a Local Provider Admitting Clinician: Marsha Mcgarry MD Attending Physician on discharge: Shilpa Malagon DO DS: Diagnosis Discharge Diagnosis (1) (vaginal after ): Status: Acute Exam Narrative: Exam Narrative: Gen: No acute distress CV: Regular rate and rhythm, normal S1,S2, no murmurs Resp: Normal rate and effort, clear to auscultation bilaterally Ext: Warm, dry, 2+ pedal pulses, no edema bilaterally. Calves non-tender to palpation. Const: Vital Signs, click to edit/add: Vital Signs - 24 hr 04/02/24 12:02 04/02/24 16:03 04/02/24 21:08 Temperature 98.5 F 98.1 F 98.2 F Pulse Rate [Left] 76 65 69 Respiratory Rate 17 18 16 Blood Pressure [Ri ght Arm] 97/61 104/67 104/67 Pulse Oximetry 99 99 99 Oxygen Delivery Me thod Room Air Room Air Room Air 04/03/24 01:22 04/03/24 07:55 Temperature 98.2 F 98.4 F Pulse Rate [Left] 70 68 Respiratory Rate 16 18 Blood Pressure [Ri ght Arm] 100/64 98/64 Pulse Oximetry 100 99 Oxygen Delivery Me thod Room Air Room Air OB - DS: Summary Hospital Course Hospital Course: The patient is a 38 year old at 39+6 weeks by 1st trimester present after SROM and spontaneous labor on 04/02/2024. is complicated by AMA and history of LTCS with first due to possible HSV outbreak. She had an uncomplicated vaginal delivery after cesarian. She delivered a viable male . She is breast feeding and supplementing as needed. the patient has done well. [place] Infant Gender: Male Status at Discharge Functional status at discharge: independent ambulation Overall status at discharge: patient is progressing back to baseline Time Spent with Patient Time attestation: Total time spent providing and/or coordinating discharge services: Discharge Plan Discharge Disposition: Home, Self-Care Date of Admission: 04/02/24 02:14 Primary Care Provider: Provider,Not a Local Condition: Stable Anticipated Discharge Date/Time: 04/03/24 08:42 Discharge Medications: Continued DHA 200 mg capsule 200 mg PO DAILY Discontinued acyclovir 400 mg tablet 400 mg PO 3XD Discharge Orders: Discharge Order (Routine); Ordered 04/03/24 Ordered By: Sandrita Hunter Patient Education: OB [place] [facility], OB Vaginal/Breast Feeding Follow Up Appointments: Provider,Not a Local [Primary Care Provider] - Forms: [employer] Info Instructions DS:Data Additional Comments Additional comments: - Pelvic rest for 6 weeks (no intercourse, tampons or douching), or until one week after vaginal bleeding stops. - Daily activities for the first week should be limited to taking care of patient and her baby, and only as tolerated. - Call MD if fever > 100.4 degrees, bleeding more than 1 pad / hour, foul-smelling discharge, passage of golf-ball sized blood clots, or worsening of pain not controlled by medications. - Counseled on signs of post- depression
[2024-04-03 08:53] LABS: Rapid Plasma Reagin (RPR) Reactive (Non Reactive)
[2024-04-04 12:46] LABS: Treponema pallidum AbTP-PA Non Reactive (Non Reactive)
== END 2024-04-03 16:15 | disposition home or self-care (01) | DRG 560 ==
LOC: OB OUT 02:14 → OB 02:14
PROVIDERS: Admitting Provider Family Medicine; Visit Provider Family Medicine
DX: O34.211 Maternal care for low transverse scar from previous cesarean delivery (principal); O98.32 Other infections with a predominantly sexual mode of transmission complicating childbirth; A60.00 Herpesviral infection of urogenital system, unspecified; O70.1 Second degree perineal laceration during delivery; Z37.0 Single live birth; Z3A.39 39 weeks gestation of pregnancy
CPT/HCPCS: 01967; 36415; 82565; 84450; 84460; 84520; 85018; 85025; 85027; 86592; 86850; 86900; 86901; A9270; J2371; J2795; J7120

== ENCOUNTER 2024-04-08 14:49 | Outpatient (CLI) | payer BC, SELFPAY ==
--- NOTE | 2024-04-08 16:12 | P.LACCB_ITS ---
Consult Note - Mom Date of Visit Date of visit: 04/08/24 Reason for consultation: Assistance Needed (latch assist needed for nipple pain) Visit Code: Visit Patient's Information Phone number: [phone] : 5 Para: 3 Allergies oxycodone Allergy (Verified 04/02/24 09:43) Work Plans: will return to work; not sure if at 6 weeks or 3 months Delivery Information Delivery type: Gestational Age: 39+6 Gestational Weight For Age: AGA Weight: 3.15 kg Discharge Weight: 3.098 kg Percentage weight loss: 1.65 Baby's Information Baby's Age at Visit: 6 days Baby's Provider or Clinic: [facility] Jaundice: No Past Experience Past Experience: Yes (BF first 2 kids for about 6 months each) Current Frequency of Day Feedings: every 2 hours or so, starting to stretch them to 3 hours Frequency of Night Feedings: about every 3-4 hours now Both Breasts: Yes Suck: strong Latch: mom wonders if it's too shallow; nipple is angled when he comes off Length of Time: 20-30 min ea breast Goals: 6 months or so Pumping Pumping: No Supplementing EBM Supplement: No Formula Supplement: Yes (about 1 oz after almost every feeding) Baby Elimination Number of Wet Diapers a Day: ea feeding Number of BM a Day: 5-6/day Breast/Nipple Condition Breast Information: Breasts are symmetrical with rounded lower quadrants, intramammary distance is less than 1.5 inches. No erythema. Nipples are supple, everted prior to feeding. Breast Shape: Round Engorgement: No Maternal Nipple Condition - Left: Common Nipple Maternal Nipple Condition - Right: Common Nipple Sore Nipples: Yes Interventions for Sore Nipples: Lansinoh/Nipple Cream Baby Assessment Skin: Dry Tongue/frenulum: Normal/elastic Palate: Average Lips: Relaxed and Symmetrical Jaw Alignment: Symmetrical Mucosa: [place], moist Onsite Observation Pre-Feed weight: 3.266 kg Post-Feed weight: 3.286 kg Milk Transferred (mL): 20 (nursed 15 min on left breast; offered 2nd breast but sleepy and declines to latch) Position: Cradle Attachment/latch-on achieved: Easily Suck pattern: Suck burst and normal rest Swallow: Audible, consistent Behavior following feed: Relaxed, sleepy Pre-Nursing Left Nipple: Within Normal Limits Pre-Nursing Right Nipple: Within Normal Limits Post-Nursing Left Nipple: Within Normal Limits Post-Nursing Right Nipple: Within Normal Limits Assessments/Interventions Assessments/Interventions: observation: Mom brought baby to the left breast with a wide open mouth and baby latched on easily and deep. Baby was mostly sitting up on mom's lap and turning head to latch. Showed mom and helped her to turn baby to her belly so ear/shoulder/hip in straight line to help maintain position. Mom reported he doesn't usually open his mouth that wide. States him nursing doesn't hurt like it usually does; attributed this to the wider mouth and likely deeper latch than she's been getting at home. After nursing on her left breast, offered babe her right breast and he latched for about 2 minutes and then just stopped nursing and came off sleepy and content so not able to completely evaluate his latch on that side. Reviewed with mom the importance of the wide, deep latch on both sides to decrease nipple pain and increase milk transfer for baby. Discussed breast compression after about 15 min of nursing if he is getting sleepy at the breast to increase milk intake; also to switch to 2nd breast after about 20 minutes to keep him awake with nursing. offer supplement only if he acts hungry now that milk is in Discussed pumping to increase supply if desired (she is getting a pump this week); and to use EBM for supplement if she has her own milk available before using formula. Education provided: Early feeding cues to maximize timing of latching, Asymmetric latch technique for wide/deep latch to increase milk, Transfer for baby and increase comfort for mom, Supply/demand nature of milk supply, Need for frequent stimulation/milk removal, Sore nipple treatment options and Hand expression Follow-Up Suggested follow up: Appointment as needed Time Spent Time spent with patient (min): 60 Meds Home Medications and Allergies Home Medications ?Medication ?Instructions ?Recorded ?Confirmed ?Type docosahexaenoic acid 200 mg 200 mg PO DAILY 02/27/24 04/02/24 History capsule ( DHA) Allergies Allergy/AdvReac Type Severity Reaction Status Date / Time oxycodone Allergy Verified 04/02/24 09:43
== END 2024-04-08 14:50 | disposition home or self-care (01) ==
LOC: OB LAC 14:50
PROVIDERS: Visit Provider Family Medicine
DX: Z39.1 Encounter for care and examination of lactating mother (principal)
CPT/HCPCS: G0463

== ENCOUNTER 2024-10-02 11:14 | Emergency (ER) | payer BC, SELFPAY ==
--- OUTSIDE RECORDS SUMMARY | 2024-10-02 11:16 | XMS_ITS | Clinical Summary ---
Author Organization [facility] Address [facility] [place] [address] [address] Operations Clerk Name Role Phone Marsha Mcgarry MD Primary Care Provider Marsha Mcgarry MD Unavailable [phone] Allergies Active Allergy Reactions Criticality Noted Date Comments Oxycodone Hives,Shortness Of Breath 07/07/2021 Medications Sshhnowg-Ct-Pab- Fe-FA tab tablet Take 1 Tablet by mouth once daily. Active acyclovir (ZOVIRAX) 400 mg tabletIndication s:Hx of herpes genitalis Take 1 Tablet (400 mg) by mouth three times daily. 90 Tablet 1 4 Active cholecalciferol, Vitamin D3, (Vitamin D-3) 5,000 unit tab tabletIndication s:Care and examination of lactating mother (HC) Take 1 Tablet (5,000 units) by mouth once daily. 90 Tablet 3 5 Active nystatin 100,000 unit/gram creamIndications :Yeast infection of the skin Apply topically to affected area(s) two times daily. 30 g 5 Active Breast Pump PurchaseIndicati ons:Care and examination of lactating mother (HC) Electric breast pump for home use. Gestational age at delivery: 40 weeks. Reason for need: return to work. Length of need: 99 months (lifetime use) 1 Each 5 Active Active Problems Problem Noted Date Diagnosed Date AMA (advanced maternal age) multigravida 35+, second trimester 11/15/2023 History of successful vagina l after , currently 11/15/2023 [facility] Supervision of high-risk Overview (11/09/2023): Po Alexander : 1985 REFERRING PROVIDER/CLINIC LOCATION/FAX #: Marsha Mcgarry [facility]/testing: Yes [facility] ULTRASOUND/TESTING PATIENT Support person name: Oleo Hasher And Renderer: No ULTRASOUND TYPE: L2 REASON FOR VISIT: AMA NEXT VISIT ALERTS: Final JIM by Early Ultrasound LMP Date: Patient's last menstrual period was 05/26/2023 (approximate). JIM: 03/01/24 Early US: Date: 08/29/23 GA: 8w6d JIM: 04/03/24 PrePregnancy Weight: 191 lbs Height: 5'10.5 BMI: 27 PLANS & FUTURE APPOINTMENTS: ULTRASOUND/GROWTH PLAN: - Through: - Growth: Next TESTING PLAN: - Testing: Through DELIVERY PLAN: - Scheduled delivery: - Preferred delivery location: PRIMARY DIAGNOSIS: 37 y.o. Estimated Date of Delivery: 04/03/24 AMA Thrombocytopenia (PLT 117 on 08/04/23) hx genHSV Hx TB 1998 2014 Term 2013 35w0d LTC/S (C/S for possible HSV outbreak) PREVIOUS ULTRASOUNDS: 11/15/23 20w0d ECHO: SPECIALISTS/CONSULTS: Include: Specialty MD Clinic Name Phone# [place] and ADDED TO PATIENT CARE TEAM Yes GENETICS: Declines/Not Done CARE COORDINATION: PERTINENT LABS: Labs reviewed? Yes Normal? No Blood type: O Rh Positive Antibody screen: Negative 08/04/23: Platelets 117 PERTINENT MEDS: PROCEDURES: IF FGR <10% or EFW <2000 grams: Add FGRPCOM PLAN OF CARE: Original and updated POC Pap smear for cervical cancer screening 09/12/19 Overview (09/12/2023): 08/2023 NIL/HPV negative. Plan: Pap/HPV due 08/2028. 08/04/2023 Overview (01/10/2024): Primary OB patient of Dr. Mcgarry Preferred name: Po Language/cultural preferences: Comoran OB HISTORY / PERTINENT MEDICAL HISTORY: JIM: 04/03/2024, by 8w6d Ultrasound OB History Para Term AB Living 5 2 1 1 2 2 SAB IAB Ectopic Multiple Live Births # Outcome Date GA Lbr Bowen/2nd Weight Sex Delivery Anes PTL Lv 5 Current 4 AB 3 AB 2 1 Term Prior hx Preeclampsia NO HTN NO GDM NO Dystocia NO C/S YES 2012 possible HSV outbreak - Last delivery If hx C/S needs TOLAC consult Issues this : AMA Prophylactic acyclovir needed in last month Social History : FOB/Spouse: Children: 9&11 Work/school: [employer] Substance use: No COURSE: Anatomy US at 20w0d GA: Normal, Posterior Fundal placenta, sex {ANW MB Gender:[id number]} Last estimated weight: 20w US- EFW 386 grams, percentile: 89 due to FL at 94th centile, Additional Ultrasounds: Vaccination: Flu none on file Tdap (27-36w) none on file BMI: Body mass index is 25.32 kg/m . Pre-eclampsia risk on aspirin? {yes/no/NA:79317} LABS: GBS: {gbs:53453} 28wk labs: {28wOBlab:76627} OB labs: ABORH Date Value Ref Range Status 08/04/2023 O Rh Positive Final ANTIBODY SCREEN Date Value Ref Range Status 08/04/2023 Negative Negative Final TREPONEMA PALLIDUM Date Value Ref Range Status 08/04/2023 Non-Reactive Non-Reactive Final RUBELLA IGG ANTIBODY Date Value Ref Range Status 08/04/2023 9.86 >=1.00 Index Final INTERPRETATION Date Value Ref Range Status 08/04/2023 Positive Final Comment: Presence of detectable IgG antibodies. A positive result generally indicates exposure to the virus or previous vaccination, but is not an indication of active infection or stage of disease. 08/04/2023 Positive Final Comment: Presence of detectable IgG antibodies. A positive result generally indicates exposure to the virus or previous vaccination, but is not an indication of active infection or stage of disease. HBSAG Date Value Ref Range Status 08/04/2023 Nonreactive Nonreactive Final HEPATITIS C ANTIBODY Date Value Ref Range Status 08/04/2023 Non-Reactive Non-Reactive Final Comment: Please note, per www.CDC.gov: If a patient is known to be at high risk of HCV infection, or is symptomatic, and the physician's suspicion of HCV infection is high, HCV RNA testing is often employed and is of diagnostic value, even after an initial negative anti-HCV test result. HIV-1/HIV-2 SCREEN Date Value Ref Range Status 08/04/2023 Non-Reactive Non-Reactive Final Comment: HIV-1 p24 and HIV-1/HIV-2 Ab Not Detected. VARICELLA ZOSTER IGG ANTIBODY Date Value Ref Range Status 08/04/2023 179.7 >=165.0 INDEX Final HEMOGLOBIN Date Value Ref Range Status 08/04/2023 10.2 (L) 12.0 - 16.0 g/dL Final PLATELET COUNT Date Value Ref Range Status 08/04/2023 117 (L) 140 - 440 thou/cu mm Final CHLAMYDIA PROBE Date Value Ref Range Status 08/04/2023 Negative Final N GONORRHOEAE PROBE Date Value Ref Range Status 08/04/2023 Negative Final PLAN: plan:{YES/NO:} Support people at delivery: Circumcision:{yes/no/NA:48494} Feeding plan{BREAST/BOTTLE:69} Contraception: Immunizations Immunization Administration Dates Next Due COVID-19 vaccine (Hotelcloud[employer] NTech 30mcg/0.3mL) 12YO+ DON-SUCROSE PF, MDV 08/06/2021,07/07/2021 INFLUENZA, IIV3 PF (AGE >= 6 MO) 01/10/2024 RSV, Bivalent Vaccine Recons tituted (Abrysvo 120MCG/0.5mL) 03/06/2024 Tdap 01/10/2024 Family History Medical History Relation Name Comments Good Health Brother 1 Good Health Brother 2 Good Health Brother 3 Good Health Brother 4 Good Health Brother 5 Good Health Brother 6 Good Health Brother 7 Good Health Father Peter Good Health Maternal Aunt Good Health Maternal Uncle Hypertension Mother Nyebol Other Mother Nyebol Polio Good Health Paternal Aunt Good Health Paternal Uncle Good Health Sister 1 Parthaaang Good Health Sister 2 Good Health Sister 3 Good Health Sister 4 Good Health Sister 5 Good Health Sister 6 Good Health Sister 7 Relation Name Status Comments Brother 1 Brother 2 Alive Brother 3 Alive Brother 4 Alive Brother 5 Alive Brother 6 Alive Brother 7 Alive Father Peter Alive Maternal Aunt Maternal Grandfather Maternal Grandmother Maternal Uncle Mother Naomi Alive Paternal Aunt Paternal Grandfather Paternal Grandmother Paternal Uncle Sister 1 Carisa Alive Sister 2 Alive Sister 3 Alive Sister 4 Alive Sister 5 Alive Sister 6 Alive Sister 7 Alive Social History Tobacco Use Types Packs/Day Years Used Date Smoking Tobacco: Never Smokeless Tobacco: Never Tobacco Cessation:Counseling Given: Yes Alcohol Use Standard Drinks/Week Comments Not Currently 0 (1 standard drink = 0.6 oz pur e alcohol) occassionally PHQ-2 Answer Date Recorded PHQ-2 TOTAL SCORE 0 08/04/2023 Social Connections Answer Date Recorded Do you often feel lonely or isolated from those around you? 0 09/27/2023 Financial Resource Strain Answer Date R ecorded Difficulty of Paying Living Expenses 3 09/27/2023 Difficulty of Paying Living Expenses Not on file 09/27/2023 Food Insecurity Answer Date Recorded Do you worry your food will run out before you are able to buy more? 1 09/27/2023 Transportation Needs Answer Date Record ed Does lack of transportation keep you from medica l appointments? 1 09/27/2023 Does lack of transportation keep you from work, meetings or getting things that you need? 1 09/27/2023 Housing Stability Answer Date Recorded What is your housing situation today? 1 09/27/2023 Utilities Answer Date Recorded Do you have trouble paying f or utilities (for example, heat, electricity, water, phone)? 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1 F) 12/20/2023 3:13 PM CDT Respiratory Rate 18 06/14/2010 1:27 AM CDT Oxygen Saturation 97% 06/17/2024 7:43 AM CDT Inhaled Oxygen Concentration - - Weight 92.5 kg (204 lb) 06/17/2024 7:43 AM CDT Height 177.8 cm (5' 10) 06/17/2024 7:43 AM CDT Body Mass Index 29.27 06/17/2024 7:43 AM CDT Plan of Treatment Health Maintenance Due Date Last Done Comments Hepatitis B series for 19+ (1 of 3 - 19+ 3-dose series) 12/02/2006 COVID-19 vaccine series (2023- season) 2023 08/06/2021, 07/07/2021 Depression screening for age 12+ 08/03/2024 08/04/2023 BMI (ht and wt on same day) for age 18+ 06/17/2025 06/17/2024, 08/30/2023, 08/04/2023, Additional history exists Pap test for age 21-65 08/29/2028 08/30/2023, 2023 Tetanus booster 01/09/2034 01/10/2024 HIV for age 15-65 Completed 08/04/2023 Hepatitis C screening for age 18-79 Completed 08/04/2023 (IA) Tdap Completed 01/10/2024 Influenza Vaccine Completed 01/10/2024 Pneumococcal series for age 6-49 Aged Out No longer eligible based on patient's age to complete this topic Procedures Procedure Name Priority Date/Time Associated Diagnosis Comments UNIVERSAL BANKER THIN PREP PAP SCREEN IMAGED Routine 08/30/2023 11:45 AM CDT Screening for cervical cancer ANTI HIV 1/2 Routine 08/04/2023 3:25 PM CDT Encounter for supervision of other normal in first trimester (HC) ANTI HCV Routine 08/04/2023 3:25 PM CDT Encounter for supervision of other normal in first trimester (HC) from Last 3 Months or Most Recently Relevant to Health Maintenance Results * UNIVERSAL BANKER THIN PREP PAP SCREEN IMAGED [[id number]] (08/30/2023 11:45 AM CDT) Case Report Gynecologic Cytology Report Case: [id number] Authorizing Provider: Marsha Mcgarry MD Collected: 08/30/2023 1145 Ordering Location: [facility] Received: 08/30/2023 1332 Clinic First Screen: Chinmay Dubios Specimen: UNIVERSAL BANKER ThinPrep Vial Screening, Cervical 09/10/2023 2:12 PM CDT [employer] INTERPRETATION/ RESULT NEGATIVE FOR INTRAEPITHELIAL LESION OR MALIGNANCY (NIL) (none) 09/10/2023 2:12 PM CDT [facility] ENTRAL LABORAT[facility] at 1412 CDT SPECIMEN ADEQUACY Satisfactory for evaluation No endocervical component seen in a patient 09/10/2023 2:12 PM CDT [facility] HPV REQUEST HPV and PAP 09/10/2023 2:12 PM CDT [facility] Date of LMP 05/26/2023 09/10/2023 2:12 PM CDT [facility] Last Pap Date unknown 09/10/2023 2:12 PM CDT [facility] Last Pap Result NIL 2:12 PM CDT [facility] Abnormal Pap or [place] Bx in last 5 years No 09/10/2023 2:12 PM CDT [facility] Menstrual Status 09/10/2023 2:12 PM CDT [facility] [place] Bx Done Today No 09/10/2023 2:12 PM CDT [facility] Additional Information None given 09/10/2023 2:[address] [facility] EN[facility] Comment: Cytology is screened at [facility] - [address], [place] [address] and [facility] - [address], [place] [address] and [facility] - [address] [place] [address] Interpreted at [facility] - [address], [place] [address] Automated Review Successful 09/10/2023 2:[address] [facility] EN[facility] Comment:Specimen processed s uccessfully by automated machine made shoe unit worker device, [employer] System, [employer] ANCILLARY TESTING UNIVERSAL BANKER HPV Ordered, Please see separate report 09/10/2023 2:[address] [facility] ENTR[facility] LAB[facility]AT[facility] Note The pap test is a screening technique, not a diagnostic procedure. It is used primarily to screen for squamous cancers and precursor lesions. Published studies have shown that it is subject to both false negative and false positive results. The pap test should not be used as the sole means to diagnose or exclude pre-malignant and malignant lesions. 09/10/2023 2:12 PM CDT [facility] Other (Cervical) Non-Blood / Unknown 08/30/2023 11:45 AM CDT 08/30/2023 1:32 PM CDT Marsha Mcgarry MD PATHOLOGY/CYTOLOGY Larisa rebolledo Result [facility] [address] [place] [address], [place] * ANTI HCV (08/04/2023 3:25 PM CDT) HEPATITIS C ANTIBODY Non-Reacti ve Non-React jonathan 08/04/2023 10:40 PM CDT [facility] TRAL LABORATORY Comment:Please note, per www .CDC.gov: If a patient is known to be at high risk of HCV infection, or is symptomatic, and the physician's suspicion of HCV infection is high, HCV RNA testing is often employed and is of diagnostic value, even after an initial negative anti-HCV test result. Blood BLOOD SPECIMEN / Unknown Venipuncture / Unknown 08/04/2023 3:25 PM CDT 08/04/2023 3:32 PM CDT Mili Desai MD SEND OUTS Final Resul t Performing Organization Address City/[facility] Co de Phone Number [facility] [address] [address], * ANTI HIV 1/2 (08/04/2023 3:25 PM CDT) HIV-1/HIV-2 SCREEN Non-Reacti ve Non-Reacti ve 08/04/2023 9:59 PM CDT [facility] TRAL LABORATORY Comment:HIV-1 p24 and HIV-1/ HIV-2 Ab Not Detected. Blood BLOOD SPECIMEN / Unknown Venipuncture / Unknown 08/04/2023 3:25 PM CDT 08/04/2023 3:32 PM CDT Mili Desai MD SEND OUTS Final Resul t Performing Organization Address City/[facility] Co de Phone Number [facility] [address] [place] [address], from Last 3 Months or Most Recently Relevant to Health Maintenance Insurance [facility] Care Teams Court Operations Clerk Relationship Specialty Start Date End Date Marsha Mcgarry MD [address] [place] [address] PCP - General Family Practice 08/30/23 Marsha Mcgarry MD [address] [place] [address] Referring Provider Family Practice 09/27/23
--- OUTSIDE RECORDS SUMMARY | 2024-10-02 11:16 | XMS_ITS | Clinical Summary ---
Author Organization [facility] Address [address] [place] [id number] Care Team Providers Care Farmworker Fur Name Role Phone Unavailable Primary Care Provider Unavailabl e Source Comments Patient records contain information from all sites at [facility]. For routine questions regarding patient records, call [phone] during business hours, M-F 8:00 AM - 5:00 PM Central Time. Record requests for emergency care only can be directed to [phone] at any time.[facility] Allergies Active Allergy Reactions Criticality Noted Date Comments Oxycodone Hives with other sym ptoms including blisters High 05/29/2024 Medications * This document contains information received from the source organization and may not represent a complete record from that organization. 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 Legal Sex Female 2:32 PM SLUBBER TENDER Gender Identity Female 05/29/2024 10:06 AM SLUBBER TENDER Sexual Orientation Straight 05/29/2024 10 :06 AM SLUBBER TENDER Plan of Treatment Health Maintenance Due Date Last Done Comments Cervical/Vaginal Cancer Screening 1985 HIV Screening 1985 Hepatitis C Screening 1987 Lipid (Cholesterol) Screening 1985 Hepatitis B Vaccines (1 of 3 - 19+ 3-dose series) 12/02/2006 COVID-19 Vaccine (2023- season) 2023 08/06/2021, 07/07/2021 Depression Screening (Annual PHQ-2) 04/03/2024 DTaP,Tdap,and Td Vaccines (2 - Td or Tdap) 01/09/2034 01/10/2024 Hepatitis B Screening Discontinued 08/04/2023 Influenza Vaccine Completed 01/10/2024 HPV Vaccines Aged Out No longer eligi ble based on patient's age to complete this topic IPV Vaccines Aged Out No longer eligi ble based on patient's age to complete this topic Pneumococcal vaccine (0-49 years) Aged Out No longer eligible b ased on patient's age to complete this topic Insurance [facility]
[2024-10-02 11:19] VITALS: BP 123/89; PULSE 96; RESP 20; TEMP 36.1; O2SAT 99; BMI 28.7
--- NOTE | 2024-10-02 11:55 | ED.NAVMDI ---
HPI - Nausea/Vomiting/Diarrhea General Chief complaint: Nausea/Vomiting Stated complaint: vomiting all day Time Seen by Provider: 10/02/24 11:19 History of Present Illness HPI Narrative: This 38-year-old female comes in reporting persistent vomiting since yesterday. She reports some upper epigastric abdominal pain. She states that she does have a history of reflux and these symptoms are somewhat similar but not with vomiting. She did take omeprazole but states that she vomited soon thereafter. She arrives here with normal vital signs. She does not report any fevers or blood in the vomit. She does not report any diarrhea. Related Data Previous Rx's ?Medication ?Instructions ?Recorded ondansetron 4 mg disintegrating 4 mg PO Q6H #10 tabs 10/02/24 tablet Allergies Allergy/AdvReac Type Severity Reaction Status Date / Time oxycodone Allergy Verified 04/02/24 09:43 Review of Systems Status of ROS: Reports: 10 or more systems reviewed and unremarkable except as noted in History and below Narrative: Constitutional: No fevers, no weight gain or loss. Eyes: No discharge. No vision changes. HENT: No congestion, no sore throat, no ear pain. Cardiovascular: No chest pain, no palpitations. Respiratory: No shortness of breath, no wheezes, no cough. Gastrointestinal: No diarrhea. Nausea with vomiting and upper epigastric abdominal pain. Genitourinary: No dysuria, no hematuria. Musculoskeletal: Normal range of motion. Skin: No rashes, no pruritis. Neurological: No dizziness, weakness, sensory change, speech change. Endo/Heme/Allergies: No bruising or bleeding. No polydipsia. Pysch: no suicidality, no anxiety, no insomnia. All other systems reviewed and are negative. [facility] Social History What is your current living situation?: I presently have a place to live Problems where you live: no known problems In the past 12 months, utilities in danger of being shut off: no In past 12 months, lack of transportation kept you from medical appts, meetings, work, or getting things needed for daily living: no In the past 12 mos, have been you worried that your food would run out before you had money to buy more?: never true In the past 12 mos, the food you bought just didn't last and you didn't have money to buy more?: never true Smoking Status: Never smoker Do you use any of these nicotine containing products: None Second hand tobacco smoke exposure: No How often do you have a drink containing alcohol: monthly or less How many standard drinks containing alcohol do you have on a typical day: 1 or 2 How often do you have six or more drinks on one occasion: Never AUDIT-C Alcohol total score: 1 Non-prescribed substance use: denies use How often does anyone, including family, friends and others, physically hurt you: never How often does anyone, including family, friends and others, insult or talk down to you: never How often does anyone, including family, friends and others, threaten you with harm: never How often does anyone, including family, friends and others, scream or curse at you: never Exam Narrative: Exam Narrative: Constitutional: Well-developed, well-nourished, no acute distress. HEENT: Normocephalic, atraumatic. Neck: Normal range of motion. Nontender. Supple. Heart: Regular. No murmurs. Normal rate. Intact distal pulses. Lungs: Clear to auscultation. No chest discomfort. No wheezes, rhonchi, or rales. Abdomen: Normal bowel sounds. Diffuse tenderness in the upper abdomen. No rebound tenderness. Genitalia: Deferred. Back: No midline tenderness. Normal range of motion. Extremities: Normal range of motion. No injury. Skin: Intact. No rash. Warm. No erythema or pallor. Neurologic: No altered sensation. No weakness. Alert and oriented. Psychiatric: No suicidality. No anxiety or depression. No insomnia. Nursing notes and vitals signs are reviewed. Const: Vital Signs, click to edit/add: Vital Signs - 24 hr 10/02/24 11:19 Temperature 97.0 F L Pulse Rate [Pulse Oximeter] 96 Respiratory Rate 20 Blood Pressure [Ri ght Upper Arm] 123/89 Pulse Oximetry 99 Oxygen Delivery Me thod Room Air Course Vital Signs Vital signs: Initial Vital Signs Temperature 97.0 F L 10/02/24 11:19 Temperature Source Temporal Artery Scan 10/02/24 11:19 Pulse Rate 96 10/02/24 11:19 Respiratory Rate 20 10/02/24 11:19 Blood Pressure 123/89 10/02/24 11:19 Blood Pressure Mean 100 10/02/24 11:19 Blood Pressure Position Sitting 10/02/24 11:19 Pulse Oximetry 99 10/02/24 11:19 Oxygen Delivery Method Room Air 10/02/24 11:19 Vital Signs Temperature 97.0 F L 10/02/24 11:19 Pulse Rate 96 10/02/24 11:19 Respiratory Rate 20 10/02/24 11:19 Blood Pressure 123/89 10/02/24 11:19 Pulse Oximetry 99 10/02/24 11:19 Oxygen Delivery Method Room Air 10/02/24 11:19 Temperature 97.0 F L 10/02/24 11:19 Pulse Rate 96 10/02/24 11:19 Respiratory Rate 20 10/02/24 11:19 Blood Pressure 123/89 10/02/24 11:19 Pulse Oximetry 99 10/02/24 11:19 Oxygen Delivery Method Room Air 10/02/24 11:19 Medications Administered Medications: Discontinued Medications Generic Name Dose Route Start Last Admin Trade Name Boy PRN Reason Stop Dose Admin Sodium Chloride 1,000 mls @ 1,000 mls/hr 10/02/24 12:00 10/02/24 13:04 0.9 % Sodium Chloride 1000 Ml IV 10/02/24 12:59 Infused .Q1H DAVID Infusion Lidocaine/Aluminum/Magnesium/Simeth 30 ml 10/02/24 11:51 10/02/24 12:49 Gi Cocktail (Visc Lido/Antacid) 30 Ml PO 10/02/24 11:52 30 ml ONCE ONE Administration Ondansetron HCl 4 mg 10/02/24 11:51 10/02/24 12:20 Ondansetron 2 Mg/Ml Inj IVP 10/02/24 11:52 4 mg ONCE ONE Administration MDM - Nausea/Vomiting/Diarrhea MDM Narrative Medical decision making narrative: This patient comes in with persistent nausea and vomiting. An IV was established where she received a L of normal saline and 4 mg of Zofran. Later she also received a GI cocktail and Toradol 15 mg. This brought sufficient relief to her symptoms. Her vital signs have been stable even upon entry here so she is okay to be discharged home. She did receive a prescription for Zofran. Discharge Plan Discharge Clinical Impression: Nausea & vomiting Patient Disposition: Home, Self-Care Condition: Improved Additional Instructions: Take medication as needed and indicated. Increase diet as tolerated. Follow up with MD return if worsening. Prescriptions: New ondansetron 4 mg tablet,disintegrating 4 mg PO Q6H Qty: 10 0RF Follow Up/Referrals: Provider,Not a Local [Non-Staff, Family Practice] Stand Alone Forms: 3 day [employer] Info Instructions
[2024-10-02] MEDS: ONDANSETRON 2 MG/ML inj 4 MG IVP (12:20)
[2024-10-02] MEDS: GI COCKTAIL (VISC LIDO/ANTACID) 30 ML PO (12:49)
[2024-10-02 13:25] VITALS: BP 111/73; PULSE 76; RESP 18; TEMP 36.6; O2SAT 98
== END 2024-10-02 13:33 | disposition home or self-care (01) ==
PROVIDERS: Emergency Provider Emergency Medicine Emergency Medical Services; PCP Family Medicine
DX: R11.2 Nausea with vomiting, unspecified (principal); R10.13 Epigastric pain
CPT/HCPCS: 96374; 96375; 99284; A9270; J1885; J2405; J7030